=== PATIENT | female | born 1970 | race Caucasian/White ===

== ENCOUNTER 2016-07-04 14:27 | Observation (INO) | payer MEDICARE ==
[2016-07-04] MEDS ORDERED: BABY ASPIRIN 81 MG CHEW PO ONE (14:35)
[2016-07-04] MEDS ORDERED: Nitrostat 0.4 MG (ED) SL ONE ×3 (14:47→15:32)
[2016-07-04] MEDS ORDERED: BABY ASPIRIN 81 MG CHEW ONE (14:51)
--- NOTE | 2016-07-04 14:51 | ERPHSYRPT ---
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 states she became diaphoretic and nauseated. states she sees a cds sales advisor for mitral valve prolapse and strong family hx of heart disease Triage Nursing Assessment: pt pink, warm, dry. lung sounds clear and equal. radial pulses strong. Physician History: PATIENT WITH HISTORY OF RHEUMATOID ARTHRITIS, MITRAL VALVE PROLAPSE. COMPLAINS OF SUBSTERNAL CHEST PRESSURE PAIN SCALE 6/10, CONSTANT OVER THE PAST HOUR, ASSOCIATED WITH DIAPHORESIS AND OCCASIONAL DYSPNEA. DENIES RADIATION OF PAIN TO NECK, BACK, JAW OR ARMS. HAS STRONG FAMILY HISTORY MOTHER WITH MYOCARDIAL INFARCTION AGE 50. Timing/Duration: today Activities at Onset: none Quality: pressure Location: substernal Chest Pain Radiation: no radiation Severity of Pain-Max: moderate Severity of Pain-Current: moderate Modifying Factors: Improves With: nothing Associated Symptoms: shortness of breath, diaphoresis Prior Chest Pain/Cardiac Workup: no prior chest pain Nitro Today/Relief: no nitro taken today Aspirin Treatment Today: no aspirin today Allergies/Adverse Reactions: No Known Drug Allergies Allergy (Unverified 07/04/16 14:34) Home Medications: Cyclobenzaprine HCl [Flexeril] 10 mg PO TID 07/04/16 [History] Folic Acid 1 mg PO DAILY 07/04/16 [History] Methotrexate Sodium [Methotrexate] 2.5 mg PO UD 07/04/16 [History] Hx Tetanus, Diphtheria Vaccination/Date Given: Yes (unknown) Hx Influenza Vaccination/Date Given: Yes Hx Pneumococcal Vaccination/Date Given: No Immunizations Up to Date: Yes - Review of Systems Constitutional: No Fever, No Chills Eyes: No Symptoms Ears, Nose, & Throat: No Symptoms Respiratory: No Cough, No Dyspnea Cardiac: Chest Pain, No Edema, No Syncope Abdominal/Gastrointestinal: No Symptoms, No Abdominal Pain, No Nausea, No Vomiting, No Diarrhea Genitourinary Symptoms: No Symptoms, No Dysuria Musculoskeletal: No Symptoms, No Back Pain, No Neck Pain Skin: No Symptoms, No Rash Neurological: No Dizziness, No Focal Weakness, No Sensory Changes Psychological: No Symptoms Endocrine: No Symptoms All Other Systems: Reviewed and Negative - Past Medical History Pertinent Past Medical History: Yes Musculoskeletal History: Fibromyalgia, Rheumatoid Arthritis - Past Surgical History Past Surgical History: Yes Female Surgical History: Section - Social History Smoking Status: Never smoker Exposure to second hand smoke: No Drug Use: none Patient Lives Alone: No - Female History Hx Last Menstrual Period: end may 2016 - Nursing Vital Signs Pulse Rate: 68 Respiratory Rate: 18 Pain Intensity: 6 - Physical Exam General Appearance: no apparent distress, alert Eye Exam: PERRL/EOMI, eyes nml inspection Ears, Nose, Throat Exam: normal ENT inspection, moist mucous membranes Neck Exam: normal inspection, non-tender, supple, full range of motion Respiratory Exam: normal breath sounds, lungs clear, No respiratory distress Cardiovascular Exam: regular rate/rhythm, normal heart sounds, murmur (GRADE 2/ 4 ZENON,) Gastrointestinal/Abdomen Exam: soft, normal bowel sounds, No tenderness, No mass Back Exam: normal inspection, No CVA tenderness, No vertebral tenderness Extremity Exam: normal inspection, normal range of motion Neurologic Exam: alert, oriented x 3, cooperative, normal mood/affect, sensation nml, No motor deficits Skin Exam: normal color, warm, dry SpO2 Interpretation: normal SpO2: 100 Oxygen Delivery: Room Air - Course EKG Interpreted by Me: RATE, Sinus Rhythm (RATE OF 75), NORMAL AXIS - Radiology Exams Chest X-ray Interpretation: Interpreted by me, Negative Ordered Tests: Active Orders 24 hr Category Date Time Status Up With Assistance ROUTINE Activity 07/04/16 16:28 Ordered Admission/Status Order ROUTINE Care 07/04/16 16:27 Ordered Call Admit Doctor for Orders ROUTINE Care 07/04/16 16:27 Ordered Jowl Trimmer STAT Care 07/04/16 14:36 Active Jowl Trimmer STAT Care 07/04/16 14:47 Active Code Status Order ROUTINE Care 07/04/16 16:27 Ordered EKG-ER Only STAT Care 07/04/16 14:36 Active IV Care Q6H Care 07/04/16 16:27 Ordered IV Insertion STAT Care 07/04/16 14:36 Active Implement Chest Pain Pathway ROUTINE Care 07/04/16 16:27 Ordered Oxygen-ED Only NASAL CANNULA 2 lpm Care 07/04/16 14:47 Active Pulse Oximetry (ED) STAT Care 07/04/16 14:38 Active Jovan Macias, Apply ROUTINE Care 07/04/16 16:27 Ordered Telemetry ROUTINE Care 07/04/16 16:27 Ordered Vital Signs Q4H Care 07/04/16 16:27 Ordered Weight,Daily 0600 Care 07/04/16 16:27 Ordered Cardiac Diet Diet 07/04/16 Breakfast Ordered CHEST 1 VIEW (PORTABLE) Stat Exams 07/04/16 14:47 Taken CBC W DIFF Stat Lab 07/04/16 14:50 Completed CMP Routine Lab 07/04/16 14:50 Results D-DIMER QUANTITATION Stat Lab 07/04/16 14:50 Completed HCG,QUALITATIVE URINE Stat Lab 07/04/16 14:50 Completed LIPID PROFILE AM.LAB Lab 07/05/16 04:00 Ordered NT PRO BNP Routine Lab 07/04/16 14:50 Results PROTIME WITH INR Stat Lab 07/04/16 14:50 Completed TROPONIN Q3H Lab 07/04/16 14:50 Results TROPONIN Q3H Lab 07/04/16 18:00 Ordered TROPONIN Q3H Lab 07/04/16 21:00 Ordered TROPONIN Q3H Lab 07/05/16 00:00 Ordered TROPONIN Q3H Lab 07/05/16 03:00 Ordered UA W/ MICROSCOPIC Stat Lab 07/04/16 14:50 Completed EKG Q8HX2,QAMX3,PRN RT 07/04/16 16:27 Ordered Pulse Oximetry Q4H RT 07/04/16 16:27 Ordered Transfer Order Routine Transfer 07/04/16 16:26 Ordered Medication Summary Generic Name Dose Route Start Last Admin Trade Name Freq PRN Reason Stop Dose Admin Sodium Chloride 1,000 mls @ 50 mls/hr 07/04/16 15:00 07/04/16 14:52 Sodium Chloride 0.9% 1000 Ml IV 08/03/16 14:59 50 mls/hr .Q20H MICAH Administration Nitroglycerin 0.4 mg 07/04/16 15:10 07/04/16 15:34 Nitrostat 0.4 Mg Tablet SL 08/03/16 15:09 0.4 mg PRN PRN Administration CHEST PAIN Discontinued Medications Generic Name Dose Route Start Last Admin Trade Name Freq PRN Reason Stop Dose Admin Aspirin 324 mg 07/04/16 14:35 07/04/16 14:38 Baby Aspirin 81 Mg Chew PO 07/04/16 14:36 324 mg STAT ONE Administration Aspirin Confirm 07/04/16 14:51 Baby Aspirin 81 Mg Chew Administered 07/04/16 14:52 Dose 324 mg .ROUTE .STK-MED ONE Fentanyl Citrate 100 mcg 07/04/16 15:30 07/04/16 15:34 Sublimaze 100 Mcg/2 Ml IV 07/04/16 15:31 100 mcg STAT ONE Administration Fentanyl Citrate Confirm 07/04/16 15:33 Sublimaze 100 Mcg/2 Ml Administered 07/04/16 15:34 Dose 100 mcg .ROUTE .STK-MED ONE Sodium Chloride Confirm 07/04/16 14:52 Sodium Chloride 0.9% 1000 Ml Administered 07/04/16 14:53 Dose 1,000 mls @ ud .ROUTE .STK-MED ONE Nitroglycerin 0.4 mg 07/04/16 14:47 07/04/16 14:51 Nitrostat 0.4 Mg (Ed) SL 07/04/16 14:48 0.4 mg STAT ONE Administration Nitroglycerin Confirm 07/04/16 14:52 Nitrostat 0.4 Mg (Ed) Administered 07/04/16 14:53 Dose 0.4 mg SL .STK-MED ONE Nitroglycerin Confirm 07/04/16 15:32 Nitrostat 0.4 Mg (Ed) Administered 07/04/16 15:33 Dose 0.4 mg SL .STK-MED ONE Ondansetron HCl 4 mg 07/04/16 15:29 07/04/16 15:34 Zofran 4 Mg/2 Ml Vial IV 07/04/16 15:30 4 mg STAT ONE Administration Ondansetron HCl Confirm 07/04/16 15:32 Zofran 4 Mg/2 Ml Vial Administered 07/04/16 15:33 Dose 4 mg .ROUTE .STK-MED ONE Lab/Rad Data: Laboratory Result Diagrams 07/04/16 14:50 07/04/16 14:50 Laboratory Results 07/04/16 07/04/16 07/04/16 Range/Units 14:50 14:50 14:50 WBC (4.0-10.5) K/mm3 RBC (4.1-5.4) M/mm3 Hgb (12.0-16.0) gm/dl Hct (35-47) % MCV (78-100) fl MCH (26-32) pg MCHC (32-36) g/dl RDW (11.5-14.0) % Plt Count (150-450) K/mm3 MPV (6-9.5) fl Gran % (36.0-66.0) % Lymphocytes % (24.0-44.0) % Monocytes % (0.0-12.0) % Eosinophils % (0.00-5.0) % Basophils % (0.0-0.4) % Basophils # (0-0.4) INR (0.8-3.0) D-Dimer (0.00-0.49) mg/L Sodium Pending Potassium Pending Chloride Pending Carbon Dioxide 24.6 (21-32) mEq/L Anion Gap Pending BUN 18 (9-20) mg/dL Creatinine 0.98 (0.55-1.30) mg/dl Estimated GFR > 60 ML/MIN Glucose 77 (70-110) MG/DL Calcium 8.7 (8.5-10.1) mg/dL Total Bilirubin 0.3 (0.2-1.0) mg/dL AST 11 L (15-37) U/L ALT < 6 L (12-78) U/L Alkaline Phosphatase 60 (46-116) U/L Troponin I < 0.017 (0.000-0.056) ng/ml NT-Pro-B Natriuret Pep 13 (0-125) pg/ml Serum Total Protein 7.1 (6.4-8.2) gm/dL Albumin 3.7 (3.4-5.0) g/dL Ur Collection Type CCMS Urine Color YELLOW (YELLOW) Urine Appearance CLEAR (CLEAR) Urine pH 7.0 (5-6) Ur Specific Newell 1.020 (1.005-1.025) Urine Protein NEGATIVE (Negative) Urine Glucose (UA) NEGATIVE (NEGATIVE) mg/dL Urine Ketones NEGATIVE (NEGATIVE) Urine Nitrite NEGATIVE (NEGATIVE) Urine Bilirubin NEGATIVE (NEGATIVE) Urine Urobilinogen 0.2 (0-1) mg/dL Urine WBC (Auto) NEGATIVE (NEGATIVE) Urine RBC (Auto) TRACE-INTACT (0-5) Blade/ul Urine Microscopic RBC 2-5 (0-2) /HPF Urine Microscopic WBC 0-2 (0-5) /HPF Ur Epithelial Cells FEW (FEW) /HPF Urine Bacteria FEW (NEGATIVE) /HPF Urine HCG, Qual NEGATIVE (Negative) Specimen Received 1450 07/04/16 07/04/16 07/04/16 Range/Units 14:50 14:50 WBC 6.8 (4.0-10.5) K/mm3 RBC 4.46 (4.1-5.4) M/mm3 Hgb 11.9 L (12.0-16.0) gm/dl Hct 36.9 (35-47) % MCV 82.7 (78-100) fl MCH 26.6 (26-32) pg MCHC 32.2 (32-36) g/dl RDW 13.9 (11.5-14.0) % Plt Count 336 (150-450) K/mm3 MPV 10.5 H (6-9.5) fl Gran % 48.4 (36.0-66.0) % Lymphocytes % 36.7 (24.0-44.0) % Monocytes % 13.0 H (0.0-12.0) % Eosinophils % 1.5 (0.00-5.0) % Basophils % 0.4 (0.0-0.4) % Basophils # 0.03 (0-0.4) INR 0.97 (0.8-3.0) D-Dimer 0.373 (0.00-0.49) mg/L Sodium Potassium Chloride Carbon Dioxide (21-32) mEq/L Anion Gap BUN (9-20) mg/dL Creatinine (0.55-1.30) mg/dl Estimated GFR ML/MIN Glucose (70-110) MG/DL Calcium (8.5-10.1) mg/dL Total Bilirubin (0.2-1.0) mg/dL AST (15-37) U/L ALT (12-78) U/L Alkaline Phosphatase (46-116) U/L Troponin I (0.000-0.056) ng/ml NT-Pro-B Natriuret Pep (0-125) pg/ml Serum Total Protein (6.4-8.2) gm/dL Albumin (3.4-5.0) g/dL Ur Collection Type Urine Color (YELLOW) Urine Appearance (CLEAR) Urine pH (5-6) Ur Specific Newell (1.005-1.025) Urine Protein (Negative) Urine Glucose (UA) (NEGATIVE) mg/dL Urine Ketones (NEGATIVE) Urine Nitrite (NEGATIVE) Urine Bilirubin (NEGATIVE) Urine Urobilinogen (0-1) mg/dL Urine WBC (Auto) (NEGATIVE) Urine RBC (Auto) (0-5) Blade/ul Urine Microscopic RBC (0-2) /HPF Urine Microscopic WBC (0-5) /HPF Ur Epithelial Cells (FEW) /HPF Urine Bacteria (NEGATIVE) /HPF Urine HCG, Qual (Negative) Specimen Received - Progress Progress: improved Progress Note: 07/04/16 15:00 PATIENT GIVEN IV NORMAL SALINE AT 50ML/HR, 4 BABY ASPIRIN, NITROGLYCERIN O.4MG SL X 2 DOSES, NITROPASTE 1" ANTERIOR CHEST WALL, ZOFRAN 4MG, FENTANYL 100MCG IV 07/04/16 16:21 Discussed with : Joe Will see patient in: hospital (observation) (DISCUSSED WITH DR BAZZI AT 1620 FOR ADMISSION) - Departure Time of Disposition: 16:35 Departure Disposition: Observation Clinical Impression: ACUTE CHEST PAIN Condition: Stable Critical Care Time: No Referrals: Tamra Bowman NP [Primary Care Provider] -
[2016-07-04] MEDS: Sodium Chloride 0.9% 1000 ML 1,000 ML IV SCH (14:52)
[2016-07-04] MEDS ORDERED: Sodium Chloride 0.9% 1000 ML 1,000 ML ONE (14:52)
[2016-07-04 14:55] LABS: BASOPHIL % 0.4 % (0.0-0.4); Eosinophil % 1.5 % (0.00-5.0); Granulocytes % 48.4 % (36.0-66.0); Lymphocytes % 36.7 % (24.0-44.0); Mean Cell Volume 82.7 fl (78-100); Mean Platelet Volume 10.5 fl (6-9.5); Platelet Count 336 K/mm3 (150-450); Red Blood Count 4.46 M/mm3 (4.1-5.4); Red Cell Distribution Width 13.9 % (11.5-14.0); White Blood Count 6.8 K/mm3 (4.0-10.5)
[2016-07-04 14:59] LABS: Mean Corpuscular Hemoglobin 26.6 pg (26-32)
[2016-07-04 15:06] LABS: COMPLETE URINE MICROSCOPIC? YES; Collection Type CCMS
[2016-07-04 15:09] LABS: INR 0.97 (0.8-3.0); PROTIME 10.9 SECONDS (9.95-12.35)
[2016-07-04] MEDS ORDERED: Nitrostat 0.4 MG Tablet SL PRN (15:10)
[2016-07-04] MEDS ORDERED: Zofran 4 MG/2 ML VIAL IV ONE (15:29)
[2016-07-04 15:30] LABS: Bacteria FEW /HPF (NEGATIVE); Epithelial Cells FEW /HPF (FEW); WBC 0-2 /HPF (0-5)
[2016-07-04] MEDS ORDERED: SUBLIMAZE 100 MCG/2 ML IV ONE (15:30)
[2016-07-04] MEDS ORDERED: Zofran 4 MG/2 ML VIAL ONE (15:32)
[2016-07-04] MEDS ORDERED: SUBLIMAZE 100 MCG/2 ML ONE (15:33)
[2016-07-04 15:49] LABS: ALBUMIN 3.7 g/dL (3.4-5.0); ALKALINE PHOSPHATASE 60 U/L (46-116); BILIRUBIN,TOTAL 0.3 mg/dL (0.2-1.0); BLOOD UREA NITROGEN 18 mg/dL (9-20); Carbon Dioxide 24.6 mEq/L (21-32); Glucose 77 MG/DL (70-110); SGOT/AST 11 U/L (15-37); TROPONIN < 0.017 ng/ml (0.000-0.056); Total Protein 7.1 gm/dL (6.4-8.2)
[2016-07-04 15:50] LABS: SGPT/ALT < 6 U/L (12-78)
[2016-07-04] MEDS ORDERED: MILK OF MAGNESIA 30 ML PO PRN (16:27)
[2016-07-04] MEDS ORDERED: MORPHINE SULFATE 2 MG INJ IV PRN (16:27)
[2016-07-04] MEDS ORDERED: Zofran 4 MG/2 ML VIAL IV PRN (16:27)
[2016-07-04] MEDS ORDERED: TYLENOL 325 MG PO PRN (16:27)
[2016-07-04] MEDS ORDERED: MAALOX ES 30 ML UNIT DOSE PO PRN (16:27)
[2016-07-04] MEDS ORDERED: Senokot-S Tablet PO PRN (16:27)
[2016-07-04] MEDS ORDERED: Sodium Chloride 0.9% 500 ML 500 ML IV SCH (16:30)
[2016-07-04 18:44] LABS: CHLORIDE 102 mEq/L (98-107); Potassium 3.9 mEq/L (3.5-5.1); SODIUM 139 mEq/L (136-145)
[2016-07-04 18:45] LABS: ANION GAP 16.4 MEQ/L (5-15)
--- NOTE | 2016-07-04 20:51 | XRAY ---
Indication: Dyspnea. Comparison: April 23, 2016. Portable chest again demonstrates normal heart and lungs. Bony thorax intact.
[2016-07-04] MEDS ORDERED: Protonix 40MG Tablet PO SCH ×2 (22:00→22:40)
[2016-07-04] MEDS ORDERED: TREXALL 2.5 MG PO SCH (22:00)
[2016-07-04] MEDS: NITRO-BID 2% UD PACKETS TOP SCH (22:49)
[2016-07-04] MEDS: FOLATE 1 MG PO SCH (22:50)
[2016-07-04] MEDS: Cyclobenzaprine 10 MG PO SCH (22:50)
[2016-07-05] MEDS: Sodium Chloride 0.9% 1000 ML 1,000 ML IV SCH (00:41)
[2016-07-05] MEDS: NITRO-BID 2% UD PACKETS TOP SCH (06:18)
[2016-07-05 07:44] VITALS: BP 98/53; PULSE 79; O2SAT 94
--- NOTE | 2016-07-05 07:59 | PCM.SSS ---
History of Present Illness - Chief Complaint Chief Complaint: chest pain History of Present Illness: is a 46 year old female pt of Felecia Bowman NP with hx RA who started having chest pain yesterday. She was sitting down and had pressure from the inferior portion of her ribs to the mid chest, 6/10, radiating around to the back. Some neck tightness. Diaphoresis. No palpitations, no SOB. Some nausea. Sx resolved with meds in the ER. Troponins have been negative. Pt denies any chest pain or discomfort this morning. She had a strong FHx heart disease, with her mother, Marizol, and cousin having MIs in 40s-50s and in the 50s-60s. She has seen Dr. Mera for the past 15 years or so; last seen 2 weeks ago. S he did not have a stress test this year. Non smoker. - Review of Systems Ears, Nose, & Throat: Other (ear pressure with the chest pain) Cardiac: Chest Pain, Other (as in HPI) Psychological: Anxiety, No Suicidal Ideations All Other Systems: Reviewed and Negative Medications & Allergies Home Medications: Home Medication List Cyclobenzaprine HCl [Flexeril] 10 mg PO TID 07/04/16 [History Confirmed 07/04/16 ] Folic Acid 1 mg PO DAILY 07/04/16 [History Confirmed 07/04/16] Methotrexate Sodium [Methotrexate] 2.5 mg PO UD 07/04/16 [History Confirmed 04/10] Omeprazole 20 MG [Prilosec 20 mg] 20 mg PO HS 07/04/16 [History Confirmed ] Tocilizumab 400 mg/20 ml [Actemra] 400 mg IV UD 07/04/16 [History Confirmed 07/04/16] Nitroglycerin 0.4 mg Tablet [Nitrostat 0.4 MG Tablet] 0.4 mg SL PRN PRN # 1 bottle 07/05/16 [Rx] Allergies/Adverse Reactions: Allergies Allergy/AdvReac Type Severity Reaction Status Date / Time No Known Drug Allergies Allergy Unverified 07/04/16 14:34 - Past Medical History Past Medical History: Yes Neurological History: No Pertinent History ENT History: No Pertinent History Cardiac History: Other Respiratory History: No Pertinent History Endocrine Medical History: No Pertinent History, Other Musculoskelatal History: Fibromyalgia, Rheumatoid Arthritis GI Medical History: GERD, Irritable Bowel History: No Pertinent History Pyscho-Social History: No Pertinent History Reproductive Disorders: No Pertinent History Comment: Mitral valve prolapse; anemia - Female History Hx Last Menstrual Period: end may 2016 Are you now?: No - Past Surgical History Past Surgical History: Yes Neuro Surgical History: No Pertinent History Cardiac History: No Pertinent History Respiratory Surgery: No Pertinent History GI Surgical History: No Pertinent History Genitourinary Surgical Hx: No Pertinent History Musculskeletal Surgical Hx: No Pertinent History Female Surgical History: Section - Social History Smoking Status: Never smoker Exposure to second hand smoke: No Alcohol: None Drug Use: none - Physical Exam Vital Signs: Vital Signs - 24 hr Temp Pulse Pulse Resp BP BP Pulse Ox 07/05/16 07:00 98.5 F 79 17 98/53 94 L 07/05/16 04:43 98.2 F 81 14 100/59 97 07/05/16 02:50 63 14 107/68 97 07/04/16 23:00 98.2 F 63 14 107/68 97 07/04/16 19:57 98.1 F 79 16 122/70 99 07/04/16 17:11 97.5 F 60 18 120/64 98 07/04/16 16:32 68 18 100 07/04/16 16:25 74 18 106/57 100 07/04/16 15:43 87 18 133/65 07/04/16 15:34 111/80 07/04/16 15:00 72 111/80 07/04/16 14:55 67 131/78 07/04/16 14:38 100 07/04/16 14:33 68 18 131/91 07/04/16 14:28 68 Oxygen-Last 24 hours O2 Percentage 2 Liters = 28% O2 Percentage 2 Liters = 28% General Appearance: no apparent distress Neurologic Exam: alert, oriented x 3, cooperative Eye Exam: eyes nml inspection Neck Exam: normal inspection, non-tender, No lymphadenopathy Respiratory Exam: normal breath sounds, lungs clear, No crackles/rales, No rhonchi, No wheezing Cardiovascular Exam: regular rate/rhythm, normal heart sounds, No murmur Gastrointestinal/Abdomen Exam: soft, normal bowel sounds, No tenderness, No guarding, No rebound Back Exam: normal inspection, No CVA tenderness Extremity Exam: No pedal edema, No swelling Skin Exam: normal color, warm, dry, No rash Results - Labs Lab/Micro Results: Lab Results-Last 24 Hours 07/04/16 07/04/16 07/05/16 Range/Units 18:31 21:30 00:29 Troponin I < 0.017 < 0.017 < 0.017 (0.000-0.056) ng/ml Triglycerides (30-200) mg/dL Cholesterol (100-200) mg/dL LDL Cholesterol (5-99) mg/dL HDL Cholesterol (35-60) mg/dL Heart Disease Risk Ratio 07/05/16 07/05/16 Range/Units 03:16 03:16 Troponin I < 0.017 (0.000-0.056) ng/ml Triglycerides 57 (30-200) mg/dL Cholesterol 141 (100-200) mg/dL LDL Cholesterol 70 (5-99) mg/dL HDL Cholesterol 64 H (35-60) mg/dL Heart Disease Risk Ratio 2.2 - Other Procedures and Tests Respiratory Therapy 07/05/16 05:00 EKG Q8HX2,QAMX3,PRN 07/06/16 05:00 EKG ONCE 07/07/16 05:00 EKG ONCE Assessment/Plan (1) Chest pain Current Visit: Yes Status: Acute Qualifiers: Chest pain type: unspecified Qualified Code(s): R07.9 - Chest pain, unspecified Assessment & Plan: CA ruled out. Will forward the summary of this stay to Dr. Mera and I have discussed with the patient that he may want to order a stress test. I will discuss with Dr. Mera. Code(s): R07.9 - CHEST PAIN, UNSPECIFIED (2) Rheumatoid arthritis Current Visit: Yes Status: Chronic Qualifiers: Rheumatoid arthritis location: unspecified site Rheumatoid factor presence : unspecified presence Qualified Code(s): M06.9 - Rheumatoid arthritis, unspecified Code(s): M06.9 - RHEUMATOID ARTHRITIS, UNSPECIFIED Hospital Summary - Hospital Course Hospital Course: Pt admitted with chest pain and CA ruled out with negative troponins x 5. EKG with no ST changes, NSR, normal axis. She does have a strong family history of CAD and already sees Dr. Joshua Mera so will have her follow up with him outpatient. - Vitals & Intake/Output Vital Signs: Vital Signs Temperature 98.5 F 07/05/16 07:00 Pulse Rate 79 07/05/16 07:00 Respiratory Rate 17 07/05/16 07:00 Blood Pressure 98/53 07/05/16 07:00 O2 Sat by Pulse Oximetry 94 L 07/05/16 07:00 Oxygen-Last Documented O2 Percentage 2 Liters = 28% Intake & Output: Intake & Output 07/02/16 07/03/16 07/04/16 07/05/16 10:59 10:59 11:59 11:59 Intake Total 1327 Balance 1327 Weight 72.529 kg - Lab Result Diagrams: 07/04/16 14:50 07/04/16 14:50 Lab Results-Last 24 Hrs: Lab Results-Last 24 Hours 07/04/16 07/04/16 07/05/16 Range/Units 18:31 21:30 00:29 Troponin I < 0.017 < 0.017 < 0.017 (0.000-0.056) ng/ml Triglycerides (30-200) mg/dL Cholesterol (100-200) mg/dL LDL Cholesterol (5-99) mg/dL HDL Cholesterol (35-60) mg/dL Heart Disease Risk Ratio 07/05/16 07/05/16 Range/Units 03:16 03:16 Troponin I < 0.017 (0.000-0.056) ng/ml Triglycerides 57 (30-200) mg/dL Cholesterol 141 (100-200) mg/dL LDL Cholesterol 70 (5-99) mg/dL HDL Cholesterol 64 H (35-60) mg/dL Heart Disease Risk Ratio 2.2 - Procedures and Test Procedures and Tests throughout Hospitalization: Therapy Orders & Screens 07/04/16 22:30 EKG ONCE Comment: 07/05/16 05:00 EKG ONCE Comment: EKG Q8HX2,QAMX3,PRN Comment: 07/06/16 05:00 EKG ONCE Comment: 07/07/16 05:00 EKG ONCE Comment: - Discharge Disposition: Home, Self-Care Condition: Good Prescriptions: New Nitroglycerin 0.4 mg Tablet [Nitrostat 0.4 MG Tablet] 0.4 mg SL PRN PRN #1 bottle PRN Reason: Chest Pain Continue Methotrexate Sodium [Methotrexate] 2.5 mg PO UD Folic Acid 1 mg PO DAILY Cyclobenzaprine HCl [Flexeril] 10 mg PO TID Omeprazole 20 MG [Prilosec 20 mg] 20 mg PO HS Tocilizumab 400 mg/20 ml [Actemra] 400 mg IV UD Follow up with: Tamra Bowman NP [Primary Care Provider] -
[2016-07-05] MEDS: Cyclobenzaprine 10 MG PO SCH (08:58)
[2016-07-05] MEDS: FOLATE 1 MG PO SCH (08:59)
[2016-07-05] MEDS ORDERED: Ecotrin 325 MG PO SCH (10:00)
[2016-07-11] MEDS ORDERED: TREXALL 2.5 MG PO SCH (10:00)
== END 2016-07-05 09:35 | disposition home or self-care (01) ==
LOC: ED 14:27 → MED SURG 17:02
PROVIDERS: ADMIT Family Medicine; ATTEND Family Medicine
DX: R07.9 Chest pain, unspecified (principal); M06.9 Rheumatoid arthritis, unspecified; Z79.899 Other long term (current) drug therapy
CPT/HCPCS: 93268; 93041; 96374; 99285; 36000; 96360; 96361; 93005 ×3; 84703; 81000; 85610; 36415 ×2; 83721; 83880; 85379; 85025; 80053; 80061; 84484 ×2; 71010; A9270 ×8; G0378; J2405; J3010

== ENCOUNTER 2017-07-05 16:02 | Inpatient (IN) | payer MEDICARE ==
[2017-07-05] MEDS ORDERED: Sodium Chloride 0.9% 1000 ML 1,000 ML IV SCH (16:45)
[2017-07-05 16:58] LABS: Hematocrit 38.7 % (35-47); Hemoglobin 12.1 gm/dl (12.0-16.0); Mean Cell Volume 75.4 fl (78-100); Mean Corpuscular Hemoglobin 23.6 pg (26-32); Mean Corpuscular Hgb Concent. 31.3 g/dl (32-36); Mean Platelet Volume 10.6 fl (6-9.5); Platelet Count 285 K/mm3 (150-450); Red Blood Count 5.13 M/mm3 (4.1-5.4); White Blood Count 7.6 K/mm3 (4.0-10.5)
[2017-07-05] MEDS ORDERED: Nitrostat 0.4 MG Tablet SL PRN (17:13)
--- NOTE | 2017-07-05 17:17 | XRAY ---
Indication: Abdominal pain. C. difficile. Comparison: None 2 views of the abdomen nonobstructed. Minimal small and large bowel synchronous fluid leveling, ileus versus enterocolitis. No focal bowel dilatation, bowel wall thickening, or free air. Solid organs unremarkable. Multiple pelvic phleboliths. Osseous structures intact with partially sacralized L5. Lung bases are clear. Impression: Minimal small/large bowel synchronous fluid leveling, ileus versus enterocolitis.
[2017-07-05 17:20] LABS: ALBUMIN 3.1 g/dL (3.5-5.0); ALKALINE PHOSPHATASE 208 U/L (38-126); ANION GAP 21.7 MEQ/L (5-15); BLOOD UREA NITROGEN 9 mg/dL (7-17); CHLORIDE 103 mmol/L (98-107); Calcium 8.1 mg/dL (8.4-10.2); Creatinine 1 0.62 mg/dL (0.52-1.04); Glucose 77 mg/dL (74-106); Potassium 4.6 mmol/L (3.5-5.1); SGOT/AST 130 U/L (14-36); SGPT/ALT 48 U/L (0-35); SODIUM 136 mmol/L (137-145); Total Protein 5.6 g/dL (6.3-8.2)
[2017-07-05] MEDS: FLAGYL 500 MG IVPB 500 MG/100 ML BAG IV SCH ×2 (17:33→21:33)
[2017-07-05 17:36] LABS: Carbon Dioxide 16 mmol/L (22-30)
[2017-07-05 18:52] LABS: ATYPICAL LYMPHS 6 %; BAND 5 % (0.0-2.0); Lymphocytes 20 % (24-44); Monocyte 3 % (0.0-12.0); Neutrophils 66 % (36.0-66.0); Poikilocytosis 2+; Total Cells Counted 100
[2017-07-05 18:53] LABS: ACANTHROCYTES 1+; Ovalocytes 1+
[2017-07-05 18:54] LABS: Hypochromia 1+; Microcytosis 1+
[2017-07-05] MEDS ORDERED: Zofran 4 MG/2 ML VIAL IV PRN (19:31)
[2017-07-05] MEDS: TYLENOL 325 MG PO PRN (19:40)
[2017-07-05] MEDS: Lactated Ringers 1,000 ML IV SCH (19:40)
--- NOTE | 2017-07-05 19:42 | PCM.HP ---
History of Present Illness - Chief Complaint Chief Complaint: dehydration, cdiff History of Present Illness: is a 47 year old female seen by Kendra العراقي NP today and admitted to Med Surg directly with dehydration and C. diff colitis. She was treated for an abscess on her chin with antibiotics. About 2 weeks after that she started having diarrhea. For the first 10 days or so the diarrhea was mild to moderate and her po intake was good. Overall she felt fine. After that time she started having diarrhea 2-3 times an hour and all night long. She was tested at , found to have c. diff and was given po flagyl. Has been having some chills. Decreased appetite and po intake. Today felt terrible and urine quite bright yellow. - Review of Systems Constitutional: Chills, Weakness, Weight Loss (10 lb) Respiratory: Cough Abdominal/Gastrointestinal: Abdominal Pain, Nausea, Diarrhea Neurological: Dizziness Psychological: No Anxiety, No Depression, No Suicidal Ideations, No Homicidal Ideations All Other Systems: Reviewed and Negative Medications & Allergies Home Medications: Home Medication List Cyclobenzaprine HCl [Flexeril] 10 mg PO BID 07/04/16 [History Confirmed 07/05/17 ] Folic Acid 1 mg PO DAILY 07/04/16 [History Confirmed 07/05/17] Methotrexate Sodium [Methotrexate] 2.5 mg PO UD 07/04/16 [History Confirmed ] Omeprazole 20 MG [Prilosec 20 mg] 20 mg PO HS 07/04/16 [History Confirmed ] Tocilizumab 400 mg/20 ml [Actemra] 400 mg IV UD 07/04/16 [History Confirmed 07/05/17] Nitroglycerin 0.4 mg Tablet [Nitrostat 0.4 MG Tablet] 0.4 mg SL PRN PRN # 1 bottle 07/05/16 [Rx Confirmed 07/05/17] Allergies/Adverse Reactions: Allergies Allergy/AdvReac Type Severity Reaction Status Date / Time No Known Drug Allergies Allergy Unverified 07/04/16 14:34 - Past Medical History Past Medical History: Yes Neurological History: No Pertinent History ENT History: No Pertinent History Cardiac History: Other Respiratory History: No Pertinent History Endocrine Medical History: No Pertinent History, Other Musculoskelatal History: Fibromyalgia, Rheumatoid Arthritis GI Medical History: GERD, Irritable Bowel History: No Pertinent History Pyscho-Social History: No Pertinent History Reproductive Disorders: No Pertinent History Comment: Mitral valve prolapse; anemia - Female History Are you now?: No - Past Surgical History Past Surgical History: Yes Neuro Surgical History: No Pertinent History Cardiac History: No Pertinent History Respiratory Surgery: No Pertinent History GI Surgical History: No Pertinent History Genitourinary Surgical Hx: No Pertinent History Musculskeletal Surgical Hx: No Pertinent History Female Surgical History: Section - Social History Smoking Status: Never smoker Exposure to second hand smoke: No Alcohol: None Drug Use: none - Physical Exam Vital Signs: Vital Signs - 24 hr Temp Pulse Resp BP Pulse Ox 07/05/17 16:29 97.7 F 94 H 16 107/ 99 07/05/17 16:25 97.7 F 94 H 107/66 07/05/17 16:07 97.7 F 94 H 16 99 General Appearance: no apparent distress, alert Neurologic Exam: oriented x 3, cooperative Eye Exam: eyes nml inspection Ears, Nose, Throat Exam: moist mucous membranes Neck Exam: normal inspection, non-tender, No mass, No lymphadenopathy Respiratory Exam: normal breath sounds, lungs clear, No respiratory distress, No crackles/rales, No rhonchi, No wheezing Cardiovascular Exam: regular rate/rhythm, normal heart sounds, No murmur Gastrointestinal/Abdomen Exam: soft, tenderness (epigastrum), No distention, No mass, No guarding, No rebound Back Exam: normal inspection, No rash Results - Labs Lab/Micro Results: Lab Results-Last 24 Hours 07/05/17 07/05/17 07/05/17 Range/Units 16:40 16:40 17:47 WBC 7.6 (4.0-10.5) K/mm3 RBC 5.13 (4.1-5.4) M/mm3 Hgb 12.1 (12.0-16.0) gm/dl Hct 38.7 (35-47) % MCV 75.4 L (78-100) fl MCH 23.6 L (26-32) pg MCHC 31.3 L (32-36) g/dl RDW 18.0 H (11.5-14.0) % Plt Count 285 (150-450) K/mm3 MPV 10.6 H (6-9.5) fl Segmented Neutrophils 66 (36.0-66.0) % Band Neutrophils 5 H (0.0-2.0) % Lymphocytes (Manual) 20 L (24-44) % Monocytes (Manual) 3 (0.0-12.0) % Atypical Lymphocytes 6 % Hypochromasia 1+ Poikilocytosis 2+ Microcytosis 1+ Ovalocytes 1+ Acanthocytes (Spur) 1+ Sodium 136 L (137-145) mmol/L Potassium 4.6 (3.5-5.1) mmol/L Chloride 103 (98-107) mmol/L Carbon Dioxide 16 L (22-30) mmol/L Anion Gap 21.7 H (5-15) MEQ/L BUN 9 (7-17) mg/dL Creatinine 0.62 (0.52-1.04) mg/dL Estimated GFR > 60 ML/MIN Glucose 77 (74-106) mg/dL Lactic Acid 1.2 (0.4-2.0) Calcium 8.1 L (8.4-10.2) mg/dL Magnesium 2.1 (1.6-2.3) mg/dL Total Bilirubin 0.50 (0.2-1.3) mg/dL AST 130 H (14-36) U/L ALT 48 H (0-35) U/L Alkaline Phosphatase 208 H (38-126) U/L Serum Total Protein 5.6 L (6.3-8.2) g/dL Albumin 3.1 L (3.5-5.0) g/dL - Radiology Impressions Radiology Exams & Impressions: Radiology Procedures Category Date Time Status ABDOMEN 2 VIEW Stat Exams 07/05/17 17:04 Completed Assessment/Plan (1) Clostridium difficile colitis Current Visit: Yes Status: Acute Assessment & Plan: Started IV flagyl and po vancomycin, since pt dehydrated and this has been going on for well over a week. (2) Dehydration Current Visit: Yes Status: Acute Code(s): E86.0 - DEHYDRATION (3) Rheumatoid arthritis Current Visit: No Status: Chronic Qualifiers: Rheumatoid arthritis location: unspecified site Rheumatoid factor presence : unspecified presence Qualified Code(s): M06.9 - Rheumatoid arthritis, unspecified Assessment & Plan: I've held her methotrexate and biologic for now Code(s): M06.9 - RHEUMATOID ARTHRITIS, UNSPECIFIED (4) Failure of outpatient treatment Current Visit: Yes Status: Acute Code(s): Z78.9 - OTHER SPECIFIED HEALTH STATUS
[2017-07-05] MEDS: NON-FORMULARY ITEM PO SCH (19:43)
[2017-07-05] MEDS: Protonix 40MG Tablet PO SCH (21:33)
[2017-07-05] MEDS: Cyclobenzaprine 10 MG PO SCH (21:33)
[2017-07-05] MEDS ORDERED: NON-FORMULARY ITEM (Cyclobenzaprine Hcl [Flexeril] 10 MG) PO SCH (22:00)
[2017-07-05] MEDS ORDERED: NON-FORMULARY ITEM (Omeprazole 20 Mg [Prilosec 20 Mg] 20 MG) PO SCH (22:00)
[2017-07-06] MEDS: NON-FORMULARY ITEM PO SCH ×5 (00:19→23:59)
[2017-07-06] MEDS: TYLENOL 325 MG PO PRN ×3 (00:26→17:28)
[2017-07-06] MEDS: Lactated Ringers 1,000 ML IV SCH ×2 (04:30→14:50)
[2017-07-06 05:41] LABS: Hemoglobin 9.2 gm/dl (12.0-16.0); Mean Cell Volume 74.7 fl (78-100); Mean Corpuscular Hemoglobin 23.7 pg (26-32); Mean Corpuscular Hgb Concent. 31.7 g/dl (32-36); Mean Platelet Volume 9.2 fl (6-9.5); Platelet Count 281 K/mm3 (150-450); Red Blood Count 3.88 M/mm3 (4.1-5.4); White Blood Count 6.5 K/mm3 (4.0-10.5)
[2017-07-06 06:09] LABS: ALBUMIN 2.4 g/dL (3.5-5.0); ALKALINE PHOSPHATASE 149 U/L (38-126); ANION GAP 12.7 MEQ/L (5-15); BLOOD UREA NITROGEN 6 mg/dL (7-17); CHLORIDE 104 mmol/L (98-107); Calcium 7.4 mg/dL (8.4-10.2); Carbon Dioxide 21 mmol/L (22-30); Creatinine 1 0.66 mg/dL (0.52-1.04); Glucose 99 mg/dL (74-106); Potassium 3.8 mmol/L (3.5-5.1); SGOT/AST 63 U/L (14-36); SGPT/ALT 31 U/L (0-35); SODIUM 134 mmol/L (137-145); Total Protein 4.6 g/dL (6.3-8.2)
--- NOTE | 2017-07-06 08:21 | PCM.NOTE ---
Date and Time: 07/06/17816 Subjective Assessment: Fever to 102.7 overnight - blood cultures taken. Cough has worsened since admission. Diarrhea is small amounts, still having tenesmus. Last night felt that throat was dry, painful - better since drinking this morning. - Review of Systems Constitutional: Fever, Chills Respiratory: Cough Abdominal/Gastrointestinal: Diarrhea Objective Exam General Appearance: no apparent distress, alert Neurologic Exam: oriented x 3, cooperative Skin Exam: normal color, warm, dry, No rash Ears, Nose, Throat Exam: pharynx normal, moist mucous membranes, No pharyngeal erythema, No tonsillar exudate Neck Exam: normal inspection, non-tender, lymphadenopathy (bilat ant cervical, nttp, approx 1 cm) Respiratory Exam: normal breath sounds, lungs clear, No crackles/rales, No rhonchi, No wheezing Cardiovascular Exam: regular rate/rhythm, normal heart sounds, No murmur Gastrointestinal/Abdomen Exam: soft, normal bowel sounds, No tenderness, No distention, No mass, No guarding, No rebound Extremity Exam: normal inspection, No pedal edema, No swelling OBJECTIVE DATA Vital Signs: Vital Signs - 24 hr Temp Pulse Resp BP Pulse Ox 07/06/17 06:59 98.9 F 102 H 16 103/61 94 L 07/06/17 04:00 99.1 F 93 H 18 97/56 98 07/06/17 00:00 100.1 F 112 H 18 100/63 95 07/05/17 20:07 102.7 F 110 H 18 113/70 95 07/05/17 16:29 97.7 F 94 H 16 107/66 99 07/05/17 16:25 97.7 F 94 H 107/66 07/05/17 16:07 97.7 F 94 H 16 107/66 99 Pain Assessment - Last Documented Pain Intensity 0 Pain Scale Used [facility] Intake and Output: Intake & Output 07/03/17 07/04/17 07/05/17 07/06/17 11:59 11:59 11:59 11:59 Intake Total 2935 Output Total 1100 Balance 1835 Weight 60.6 kg Lab Results: Lab Results-Last 24 Hours 07/05/17 07/05/17 07/05/17 Range/Units 16:40 16:40 17:47 WBC 7.6 (4.0-10.5) K/mm3 RBC 5.13 (4.1-5.4) M/mm3 Hgb 12.1 (12.0-16.0) gm/dl Hct 38.7 (35-47) % MCV 75.4 L (78-100) fl MCH 23.6 L (26-32) pg MCHC 31.3 L (32-36) g/dl RDW 18.0 H (11.5-14.0) % Plt Count 285 (150-450) K/mm3 MPV 10.6 H (6-9.5) fl Segmented Neutrophils 66 (36.0-66.0) % Band Neutrophils 5 H (0.0-2.0) % Lymphocytes (Manual) 20 L (24-44) % Monocytes (Manual) 3 (0.0-12.0) % Atypical Lymphocytes 6 % Hypochromasia 1+ Poikilocytosis 2+ Microcytosis 1+ Ovalocytes 1+ Acanthocytes (Spur) 1+ Sodium 136 L (137-145) mmol/L Potassium 4.6 (3.5-5.1) mmol/L Chloride 103 (98-107) mmol/L Carbon Dioxide 16 L (22-30) mmol/L Anion Gap 21.7 H (5-15) MEQ/L BUN 9 (7-17) mg/dL Creatinine 0.62 (0.52-1.04) mg/dL Estimated GFR > 60 ML/MIN Glucose 77 (74-106) mg/dL Lactic Acid 1.2 (0.4-2.0) Calcium 8.1 L (8.4-10.2) mg/dL Magnesium 2.1 (1.6-2.3) mg/dL Total Bilirubin 0.50 (0.2-1.3) mg/dL AST 130 H (14-36) U/L ALT 48 H (0-35) U/L Alkaline Phosphatase 208 H (38-126) U/L Serum Total Protein 5.6 L (6.3-8.2) g/dL Albumin 3.1 L (3.5-5.0) g/dL 07/06/17 07/06/17 Range/Units 05:39 05:39 WBC 6.5 (4.0-10.5) K/mm3 RBC 3.88 L (4.1-5.4) M/mm3 Hgb 9.2 L (12.0-16.0) gm/dl Hct 29.0 L (35-47) % MCV 74.7 L (78-100) fl MCH 23.7 L (26-32) pg MCHC 31.7 L (32-36) g/dl RDW 17.0 H (11.5-14.0) % Plt Count 281 (150-450) K/mm3 MPV 9.2 (6-9.5) fl Segmented Neutrophils (36.0-66.0) % Band Neutrophils (0.0-2.0) % Lymphocytes (Manual) (24-44) % Monocytes (Manual) (0.0-12.0) % Atypical Lymphocytes % Hypochromasia Poikilocytosis Microcytosis Ovalocytes Acanthocytes (Spur) Sodium 134 L (137-145) mmol/L Potassium 3.8 (3.5-5.1) mmol/L Chloride 104 (98-107) mmol/L Carbon Dioxide 21 L (22-30) mmol/L Anion Gap 12.7 (5-15) MEQ/L BUN 6 L (7-17) mg/dL Creatinine 0.66 (0.52-1.04) mg/dL Estimated GFR > 60 ML/MIN Glucose 99 (74-106) mg/dL Lactic Acid (0.4-2.0) Calcium 7.4 L (8.4-10.2) mg/dL Magnesium (1.6-2.3) mg/dL Total Bilirubin 0.20 (0.2-1.3) mg/dL AST 63 H (14-36) U/L ALT 31 (0-35) U/L Alkaline Phosphatase 149 H (38-126) U/L Serum Total Protein 4.6 L (6.3-8.2) g/dL Albumin 2.4 L (3.5-5.0) g/dL Radiology Exams: Radiology Procedures Category Date Time Status ABDOMEN 2 VIEW Stat Exams 07/05/17 17:04 Completed CHEST 2 VIEWS (PA AND LAT) Urgent Exams 07/06/17 Ordered Assessment/Plan (1) Clostridium difficile colitis Current Visit: Yes Status: Acute Assessment & Plan: On IV flagyl and po vancomycin, day #2. She failed outpatient flagyl. Still feeling poorly, but a little better than at admission yesterday afternoon. (2) Dehydration Current Visit: Yes Status: Acute Assessment & Plan: improved. Code(s): E86.0 - DEHYDRATION (3) Rheumatoid arthritis Current Visit: No Status: Chronic Qualifiers: Rheumatoid arthritis location: unspecified site Rheumatoid factor presence : unspecified presence Qualified Code(s): M06.9 - Rheumatoid arthritis, unspecified Code(s): M06.9 - RHEUMATOID ARTHRITIS, UNSPECIFIED (4) Failure of outpatient treatment Current Visit: Yes Status: Acute Code(s): Z78.9 - OTHER SPECIFIED HEALTH STATUS (5) Cough Current Visit: Yes Status: Acute Assessment & Plan: Worsening. Respiratory panel and CXR are pending. Code(s): R05 - COUGH (6) Pharyngitis Current Visit: Yes Status: Acute Qualifiers: Pharyngitis/tonsillitis etiology: unspecified etiology Qualified Code(s): J02.9 - Acute pharyngitis, unspecified Assessment & Plan: Exam is nonspecific, likely had some drainage overnight; also cough may be contributing. Code(s): J02.9 - ACUTE PHARYNGITIS, UNSPECIFIED
[2017-07-06 08:23] LABS: BAND 2 % (0.0-2.0); Lymphocytes 20 % (24-44); Monocyte 7 % (0.0-12.0); Neutrophils 71 % (36.0-66.0); Platelet Estimate NORMAL (NORMAL); Total Cells Counted 100
--- NOTE | 2017-07-06 08:34 | XRAY ---
Indication: Cough and dehydration. C. difficile. Comparison: July 04, 2017. PA/lateral chest demonstrates new subtle left upper and right lower lobe infiltrates without consolidation/large effusion. Remaining heart and bony thorax unremarkable.
[2017-07-06 08:40] LABS: INFLUENZA A POSITIVE (NEGATIVE); INFLUENZA B NEGATIVE (NEGATIVE); RESPIRATORY SYNCTIAL VIRUS NEGATIVE (Negative)
[2017-07-06] MEDS: ROCEPHIN 1 Gm-D5w 50 ml Bag** 1 G/50 ML IVPB IV SCH (11:00)
[2017-07-06] MEDS: Tamiflu 75MG Capsule PO SCH ×2 (11:16→21:51)
[2017-07-06] MEDS: FLAGYL 500 MG IVPB 500 MG/100 ML BAG IV SCH ×4 (11:16→21:51)
[2017-07-06] MEDS: Cyclobenzaprine 10 MG PO SCH ×3 (11:16→21:51)
[2017-07-06] MEDS: Protonix 40MG Tablet PO SCH (21:51)
[2017-07-07] MEDS: TYLENOL 325 MG PO PRN ×3 (00:11→16:24)
[2017-07-07] MEDS: Lactated Ringers 1,000 ML IV SCH ×3 (00:33→19:54)
[2017-07-07] MEDS: NON-FORMULARY ITEM PO SCH ×4 (00:50→17:56)
[2017-07-07 05:39] LABS: Granulocyte Absolute (ANC) 5.21 (1.4-6.9); Hematocrit 28.8 % (35-47); Mean Cell Volume 75.6 fl (78-100); Mean Corpuscular Hemoglobin 23.6 pg (26-32); Mean Corpuscular Hgb Concent. 31.3 g/dl (32-36); Mean Platelet Volume 9.5 fl (6-9.5); Platelet Count 296 K/mm3 (150-450); Red Blood Count 3.81 M/mm3 (4.1-5.4); Red Cell Distribution Width 17.3 % (11.5-14.0); White Blood Count 7.8 K/mm3 (4.0-10.5)
[2017-07-07 07:11] LABS: Lymphocytes 15 % (24-44); Monocyte 16 % (0.0-12.0); Neutrophils 69 % (36.0-66.0); Total Cells Counted 100
[2017-07-07 07:12] LABS: Poikilocytosis 1+; Polychromasia 1+; Toxic Granulation 1+
[2017-07-07 07:13] LABS: Platelet Estimate NORMAL (NORMAL)
--- NOTE | 2017-07-07 08:10 | PCM.NOTE ---
Date and Time: 07/07/17 0809 Subjective Assessment: patient still having significant diarrhea, coughing and feels weak. ran fever yesterday evening. Objective Exam General Appearance: no apparent distress, alert Skin Exam: normal color, warm, dry Respiratory Exam: normal breath sounds, lungs clear, No respiratory distress Cardiovascular Exam: regular rate/rhythm, normal heart sounds Gastrointestinal/Abdomen Exam: soft, No tenderness, No mass Extremity Exam: normal inspection, normal range of motion OBJECTIVE DATA Vital Signs: Vital Signs - 24 hr Temp Pulse Resp BP Pulse Ox 07/07/17 06:42 98.3 F 89 16 103/67 94 L 07/07/17 04:00 99 F 91 H 18 100/65 94 L 07/07/17 00:00 99.2 F 98 H 18 96/57 99 07/06/17 20:00 100.3 F 107 H 18 99/57 94 L 07/06/17 16:00 97.8 F 99 H 16 101/58 98 07/06/17 11:32 100.6 F 109 H 16 98/60 96 Pain Assessment - Last Documented Pain Intensity 4 Pain Scale Used 0-10 Pain Scale Intake and Output: Intake & Output 07/04/17 07/05/17 07/06/17 07/07/17 11:59 11:59 11:59 11:59 Intake Total 3055 3904 Output Total 1600 3000 Balance 1455 904 Weight 60.6 kg 62.5 kg Lab Results: Lab Results-Last 24 Hours 07/06/17 07/06/17 07/07/17 Range/Units 05:39 08:03 05:02 WBC 7.8 (4.0-10.5) K/mm3 RBC 3.81 L (4.1-5.4) M/mm3 Hgb 9.0 L (12.0-16.0) gm/dl Hct 28.8 L (35-47) % MCV 75.6 L (78-100) fl MCH 23.6 L (26-32) pg MCHC 31.3 L (32-36) g/dl RDW 17.3 H (11.5-14.0) % Plt Count 296 (150-450) K/mm3 MPV 9.5 (6-9.5) fl Segmented Neutrophils 71 H 69 H (36.0-66.0) % Band Neutrophils 2 (0.0-2.0) % Lymphocytes (Manual) 20 L 15 L (24-44) % Monocytes (Manual) 7 16 H (0.0-12.0) % Differential Comment NORMAL ABNORMAL Toxic Granulation 1+ Platelet Estimate NORMAL NORMAL (NORMAL) Polychromasia 1+ Poikilocytosis 1+ Influenza Type A Ag POSITIVE (NEGATIVE) Influenza Type B Ag NEGATIVE (NEGATIVE) RSV (PCR) NEGATIVE (Negative) Radiology Exams: Radiology Procedures Category Date Time Status ABDOMEN 2 VIEW Stat Exams 07/05/17 17:04 Completed CHEST 2 VIEWS (PA AND LAT) Urgent Exams 07/06/17 08:20 Completed Assessment/Plan (1) Clostridium difficile colitis Current Visit: Yes Status: Acute Assessment & Plan: on po vanc and IV flagyl (2) Failure of outpatient treatment Current Visit: Yes Status: Acute Code(s): Z78.9 - OTHER SPECIFIED HEALTH STATUS (3) Influenza B Current Visit: Yes Status: Acute Code(s): J10.1 - FLU DUE TO OTH IDENT INFLUENZA VIRUS W OTH RESP MANIFEST (4) Pneumonia Current Visit: Yes Status: Acute Assessment & Plan: on rocephin, continue with symptomatic treatment as well. Code(s): J18.9 - PNEUMONIA, UNSPECIFIED ORGANISM
[2017-07-07] MEDS: Tamiflu 75MG Capsule PO SCH ×2 (08:43→22:57)
[2017-07-07] MEDS: Cyclobenzaprine 10 MG PO SCH ×3 (08:43→22:57)
[2017-07-07] MEDS: FLAGYL 500 MG IVPB 500 MG/100 ML BAG IV SCH ×4 (09:25→22:56)
[2017-07-07] MEDS: ROCEPHIN 1 Gm-D5w 50 ml Bag** 1 G/50 ML IVPB IV SCH (10:39)
[2017-07-07] MEDS: Protonix 40MG Tablet PO SCH (22:57)
[2017-07-08] MEDS: NON-FORMULARY ITEM PO SCH ×4 (00:06→18:28)
[2017-07-08] MEDS: TYLENOL 325 MG PO PRN ×3 (01:17→21:23)
[2017-07-08 05:53] LABS: Granulocyte Absolute (ANC) 5.55 (1.4-6.9); Hematocrit 29.7 % (35-47); Hemoglobin 9.2 gm/dl (12.0-16.0); Mean Corpuscular Hemoglobin 23.5 pg (26-32); Mean Platelet Volume 9.4 fl (6-9.5); Platelet Count 367 K/mm3 (150-450); Red Blood Count 3.91 M/mm3 (4.1-5.4); Red Cell Distribution Width 17.6 % (11.5-14.0); White Blood Count 7.7 K/mm3 (4.0-10.5)
[2017-07-08] MEDS: Lactated Ringers 1,000 ML IV SCH ×2 (06:09→14:49)
[2017-07-08 06:18] LABS: ALBUMIN 2.6 g/dL (3.5-5.0); ALKALINE PHOSPHATASE 188 U/L (38-126); BLOOD UREA NITROGEN 5 mg/dL (7-17); CHLORIDE 104 mmol/L (98-107); Calcium 7.8 mg/dL (8.4-10.2); Carbon Dioxide 28 mmol/L (22-30); Creatinine 1 0.57 mg/dL (0.52-1.04); Glucose 109 mg/dL (74-106); Potassium 3.5 mmol/L (3.5-5.1); SGOT/AST 33 U/L (14-36); SGPT/ALT 21 U/L (0-35); SODIUM 140 mmol/L (137-145)
[2017-07-08 07:52] LABS: BAND 10 % (0.0-2.0); Lymphocytes 23 % (24-44); Monocyte 11 % (0.0-12.0); Neutrophils 56 % (36.0-66.0); Total Cells Counted 100
[2017-07-08 07:53] LABS: Hypochromia 1+; Platelet Estimate NORMAL (NORMAL)
--- NOTE | 2017-07-08 08:28 | PCM.NOTE ---
Date and Time: 07/08/17826 Subjective Assessment: still having severe diarrhea, tolerating po intake. cough is much better at this time. Objective Exam General Appearance: no apparent distress, alert Skin Exam: normal color, warm, dry Respiratory Exam: normal breath sounds, lungs clear, No respiratory distress Cardiovascular Exam: regular rate/rhythm, normal heart sounds Gastrointestinal/Abdomen Exam: soft, No tenderness, No mass Extremity Exam: normal inspection, normal range of motion OBJECTIVE DATA Vital Signs: Vital Signs - 24 hr Temp Pulse Resp BP Pulse Ox 07/08/17 07:58 98.4 F 84 16 118/77 97 07/08/17 04:00 98.0 F 85 18 110/71 98 07/08/17 00:00 98.7 F 07/07/17 20:00 98.8 F 105 H 17 105/66 96 07/07/17 16:05 99 F 100 H 18 109/70 99 07/07/17 11:14 99.5 F 92 H 16 92/53 93 L 07/07/17 08:50 99.6 F Pain Assessment - Last Documented Pain Intensity 0 Pain Scale Used 0-10 Pain Scale Intake and Output: Intake & Output 07/05/17 07/06/17 07/07/17 07/08/17 11:59 11:59 11:59 11:59 Intake Total 3055 4024 2349 Output Total 1600 3300 3000 Balance 1455 724 -651 Weight 60.6 kg 62.5 kg 62.5 kg Lab Results: Lab Results-Last 24 Hours 07/08/17 07/08/17 Range/Units 05:40 05:40 WBC 7.7 (4.0-10.5) K/mm3 RBC 3.91 L (4.1-5.4) M/mm3 Hgb 9.2 L (12.0-16.0) gm/dl Hct 29.7 L (35-47) % MCV 76.0 L (78-100) fl MCH 23.5 L (26-32) pg MCHC 31.0 L (32-36) g/dl RDW 17.6 H (11.5-14.0) % Plt Count 367 (150-450) K/mm3 MPV 9.4 (6-9.5) fl Segmented Neutrophils 56 (36.0-66.0) % Band Neutrophils 10 H (0.0-2.0) % Lymphocytes (Manual) 23 L (24-44) % Monocytes (Manual) 11 (0.0-12.0) % Differential Comment ABNORMAL Platelet Estimate NORMAL (NORMAL) Hypochromasia 1+ Sodium 140 (137-145) mmol/L Potassium 3.5 (3.5-5.1) mmol/L Chloride 104 (98-107) mmol/L Carbon Dioxide 28 (22-30) mmol/L Anion Gap 11.0 (5-15) MEQ/L BUN 5 L (7-17) mg/dL Creatinine 0.57 (0.52-1.04) mg/dL Estimated GFR > 60 ML/MIN Glucose 109 H (74-106) mg/dL Calcium 7.8 L (8.4-10.2) mg/dL Magnesium 1.9 (1.6-2.3) mg/dL Total Bilirubin 0.20 (0.2-1.3) mg/dL AST 33 (14-36) U/L ALT 21 (0-35) U/L Alkaline Phosphatase 188 H (38-126) U/L Serum Total Protein 5.0 L (6.3-8.2) g/dL Albumin 2.6 L (3.5-5.0) g/dL Radiology Exams: Radiology Procedures Category Date Time Status CHEST 2 VIEWS (PA AND LAT) Urgent Exams 07/06/17 08:20 Completed Multi-Disciplinary Progress Notes: Multi-Disciplinary Progress Notes 07/07/17 10:15 (created 07/07/17 15:08) Case Management Note by Pricila Yang CONTINUES TO PLAN TO RETURN HOME TO PRE EPISODIC LEVEL OF [facility]. INDEPENDENT WITH ALL ADL'S. WILL FOLLOW. Initialized on 07/07/17 15:08 - END OF NOTE Assessment/Plan (1) Clostridium difficile colitis Current Visit: Yes Status: Acute Assessment & Plan: on po vanc and IV flagyl (2) Failure of outpatient treatment Current Visit: Yes Status: Acute Code(s): Z78.9 - OTHER SPECIFIED HEALTH STATUS (3) Influenza B Current Visit: Yes Status: Acute Code(s): J10.1 - FLU DUE TO OTH IDENT INFLUENZA VIRUS W OTH RESP MANIFEST (4) Pneumonia Current Visit: Yes Status: Acute Code(s): J18.9 - PNEUMONIA, UNSPECIFIED ORGANISM
[2017-07-08] MEDS: FLAGYL 500 MG IVPB 500 MG/100 ML BAG IV SCH ×4 (09:29→21:23)
[2017-07-08] MEDS: Cyclobenzaprine 10 MG PO SCH ×3 (09:29→21:22)
[2017-07-08] MEDS: Tamiflu 75MG Capsule PO SCH ×2 (09:29→21:23)
[2017-07-08] MEDS: Protonix 40MG Tablet PO SCH (21:23)
[2017-07-09] MEDS: NON-FORMULARY ITEM PO SCH ×4 (00:32→18:13)
[2017-07-09] MEDS: TYLENOL 325 MG PO PRN ×3 (02:32→21:08)
[2017-07-09] MEDS: Lactated Ringers 1,000 ML IV SCH ×2 (04:48→16:31)
[2017-07-09 06:07] LABS: Granulocyte Absolute (ANC) 3.35 (1.4-6.9); Hematocrit 27.4 % (35-47); Hemoglobin 8.5 gm/dl (12.0-16.0); Mean Cell Volume 76.3 fl (78-100); Platelet Count 170 K/mm3 (150-450); Red Blood Count 3.59 M/mm3 (4.1-5.4); Red Cell Distribution Width 17.2 % (11.5-14.0); White Blood Count 5.7 K/mm3 (4.0-10.5)
[2017-07-09 06:16] LABS: ALBUMIN 2.3 g/dL (3.5-5.0); ALKALINE PHOSPHATASE 143 U/L (38-126); ANION GAP 8.9 MEQ/L (5-15); BLOOD UREA NITROGEN 8 mg/dL (7-17); CHLORIDE 106 mmol/L (98-107); Calcium 7.8 mg/dL (8.4-10.2); Carbon Dioxide 28 mmol/L (22-30); Creatinine 1 0.57 mg/dL (0.52-1.04); Glucose 92 mg/dL (74-106); Potassium 3.4 mmol/L (3.5-5.1); SGOT/AST 32 U/L (14-36); SGPT/ALT 17 U/L (0-35); SODIUM 139 mmol/L (137-145); Total Protein 4.6 g/dL (6.3-8.2)
[2017-07-09 06:27] LABS: Mean Corpuscular Hemoglobin 23.6 pg (26-32)
[2017-07-09] MEDS: Tamiflu 75MG Capsule PO SCH ×2 (08:44→21:08)
[2017-07-09] MEDS: Cyclobenzaprine 10 MG PO SCH ×2 (08:44→21:08)
[2017-07-09] MEDS: FLAGYL 500 MG IVPB 500 MG/100 ML BAG IV SCH ×4 (08:45→21:07)
[2017-07-09] MEDS ORDERED: Cyclobenzaprine 10 MG PO SCH (10:00)
--- NOTE | 2017-07-09 10:02 | PCM.NOTE ---
Date and Time: 07/09/17956 Subjective Assessment: She is feeling a little better today slept a little more last night still having bowel movements small loose to liquid up to 3 times per hour but did have a break in them finally last night she has some bleeding with wiping now. no pain in the abdomen her energy is a little better and no fevers now Objective Exam General Appearance: no apparent distress Neurologic Exam: alert, oriented x 3, cooperative Skin Exam: warm, dry Ears, Nose, Throat Exam: moist mucous membranes Neck Exam: non-tender, supple Respiratory Exam: normal breath sounds, lungs clear Cardiovascular Exam: regular rate/rhythm, normal heart sounds Gastrointestinal/Abdomen Exam: soft, normal bowel sounds, No tenderness, No distention, No mass, No guarding, No rebound Extremity Exam: normal inspection, No pedal edema OBJECTIVE DATA Vital Signs: Vital Signs - 24 hr Temp Pulse Resp BP BP Pulse Ox 07/09/17 07:42 98.1 F 84 16 110/75 97 07/09/17 04:00 98.3 F 87 16 103/73 96 07/09/17 00:08 98.9 F 90 16 114/69 96 07/08/17 20:00 99.5 F 102 H 18 110/71 97 07/08/17 16:00 98.6 F 93 H 18 115/70 97 07/08/17 11:51 99.0 F 99 H 18 117/73 94 L Pain Assessment - Last Documented Pain Intensity 5 Pain Scale Used 0-10 Pain Scale Intake and Output: Intake & Output 07/06/17 07/07/17 07/08/17 07/09/17 11:59 11:59 11:59 11:59 Intake Total 3055 4024 2589 4663 Output Total 1600 3300 3000 2000 Balance 1455 724 -538 0133 Weight 60.6 kg 62.5 kg 63.9 kg 63.5 kg Lab Results: Lab Results-Last 24 Hours 07/09/17 07/09/17 Range/Units 05:32 05:32 WBC 5.7 (4.0-10.5) K/mm3 RBC 3.59 L (4.1-5.4) M/mm3 Hgb 8.5 L (12.0-16.0) gm/dl Hct 27.4 L (35-47) % MCV 76.3 L (78-100) fl MCH 23.6 L (26-32) pg MCHC 31.0 L (32-36) g/dl RDW 17.2 H (11.5-14.0) % Plt Count 170 (150-450) K/mm3 MPV 11.0 H (6-9.5) fl Sodium 139 (137-145) mmol/L Potassium 3.4 L (3.5-5.1) mmol/L Chloride 106 (98-107) mmol/L Carbon Dioxide 28 (22-30) mmol/L Anion Gap 8.9 (5-15) MEQ/L BUN 8 (7-17) mg/dL Creatinine 0.57 (0.52-1.04) mg/dL Estimated GFR > 60 ML/MIN Glucose 92 (74-106) mg/dL Calcium 7.8 L (8.4-10.2) mg/dL Total Bilirubin 0.20 (0.2-1.3) mg/dL AST 32 (14-36) U/L ALT 17 (0-35) U/L Alkaline Phosphatase 143 H (38-126) U/L Serum Total Protein 4.6 L (6.3-8.2) g/dL Albumin 2.3 L (3.5-5.0) g/dL Assessment/Plan (1) Clostridium difficile colitis Current Visit: Yes Status: Acute Assessment & Plan: + Nap 1 gene still copious diarrhea systemic symptoms improving will see if we can cut back the iv fluids a little try some questran as well continue iv flagyl and po vanc (2) Influenza A Current Visit: Yes Status: Acute Code(s): J10.1 - FLU DUE TO OTH IDENT INFLUENZA VIRUS W OTH RESP MANIFEST (3) Rheumatoid arthritis Current Visit: Yes Status: Chronic Qualifiers: Rheumatoid arthritis location: unspecified site Rheumatoid factor presence : unspecified presence Qualified Code(s): M06.9 - Rheumatoid arthritis, unspecified Code(s): M06.9 - RHEUMATOID ARTHRITIS, UNSPECIFIED (4) Secondary immune deficiency disorder Current Visit: Yes Status: Acute Assessment & Plan: secondary to methotrexate usually takes on Sundays Code(s): D89.89 - OTH DISRD INVOLVING THE IMMUNE MECHANISM, NEC (5) Anemia Current Visit: Yes Status: Acute Code(s): D64.9 - ANEMIA, UNSPECIFIED
[2017-07-09] MEDS: QUESTRAN Light 4 GM Packet PO SCH ×2 (11:17→21:07)
[2017-07-09 14:09] LABS: BAND 2 % (0.0-2.0); Eosinophil 2 % (0.00-3.0); Lymphocytes 38 % (24-44); Monocyte 6 % (0.0-12.0); Neutrophils 52 % (36.0-66.0); Total Cells Counted 100
[2017-07-09 14:10] LABS: Platelet Estimate NP1 (NORMAL)
[2017-07-09] MEDS: Protonix 40MG Tablet PO SCH (21:07)
[2017-07-10] MEDS: NON-FORMULARY ITEM PO SCH ×5 (00:16→23:05)
--- NOTE | 2017-07-10 08:59 | PCM.NOTE ---
Date and Time: 07/10/17 0857 Subjective Assessment: she is feeling ok. down to having a bowel movement about every 2 hours now which is improved and most recent bm she felt like had more consistency. no fever or chills. tolerating po well. no abdominal pain. Objective Exam General Appearance: no apparent distress, alert Neurologic Exam: alert, oriented x 3, cooperative, normal mood/affect, nml cerebellar function, sensation nml, No motor deficits Skin Exam: normal color, warm, dry Eye Exam: PERRL, EOMI, eyes nml inspection Ears, Nose, Throat Exam: normal ENT inspection, pharynx normal, moist mucous membranes Neck Exam: normal inspection, non-tender, supple, full range of motion Respiratory Exam: normal breath sounds, lungs clear, No respiratory distress Cardiovascular Exam: regular rate/rhythm, normal heart sounds Gastrointestinal/Abdomen Exam: soft, No tenderness, No mass Extremity Exam: normal inspection, normal range of motion Back Exam: normal inspection, normal range of motion, No CVA tenderness, No vertebral tenderness Pelvic Exam: deferred Rectal Exam: deferred OBJECTIVE DATA Vital Signs: Vital Signs - 24 hr Temp Pulse Resp BP Pulse Ox 07/10/17 07:17 98.1 F 87 18 119/75 97 07/10/17 04:00 98.4 F 76 16 105/72 96 07/10/17 00:05 98.7 F 76 15 110/72 97 07/09/17 20:00 99.4 F 91 H 16 120/73 96 07/09/17 16:00 98.8 F 96 H 16 118/78 96 07/09/17 12:00 98.5 F 87 18 118/72 96 Oxygen-Last 24 hours O2 Percentage 6 Liters = 44% Pain Assessment - Last Documented Pain Intensity 0 Pain Scale Used 0-10 Pain Scale Intake and Output: Intake & Output 07/07/17 07/08/17 07/09/17 07/10/17 11:59 11:59 11:59 11:59 Intake Total 4024 2589 4663 3480 Output Total 3300 3000 2000 2350 Balance 724 -411 2663 1130 Weight 62.5 kg 63.9 kg 63.5 kg 63.8 kg Lab Results: Lab Results-Last 24 Hours 07/09/17 Range/Units 05:32 Segmented Neutrophils 52 (36.0-66.0) % Band Neutrophils 2 (0.0-2.0) % Lymphocytes (Manual) 38 (24-44) % Monocytes (Manual) 6 (0.0-12.0) % Eosinophils (Manual) 2 (0.00-3.0) % Differential Comment NORMAL Platelet Estimate NP1 (NORMAL) Assessment/Plan (1) Clostridium difficile colitis Current Visit: Yes Status: Acute Assessment & Plan: improving now with bm down to every 2 hours slighlty more consistency she states continue iv flagyl and po vanc will stop iv fluids today and see how she does maintaining her hydration po if continues improvement possibly home tomorrow (2) Influenza A Current Visit: Yes Status: Acute Code(s): J10.1 - FLU DUE TO OTH IDENT INFLUENZA VIRUS W OTH RESP MANIFEST (3) Rheumatoid arthritis Current Visit: Yes Status: Chronic Qualifiers: Rheumatoid arthritis location: unspecified site Rheumatoid factor presence : unspecified presence Qualified Code(s): M06.9 - Rheumatoid arthritis, unspecified Code(s): M06.9 - RHEUMATOID ARTHRITIS, UNSPECIFIED (4) Secondary immune deficiency disorder Current Visit: Yes Status: Acute Code(s): D89.89 - OTH DISRD INVOLVING THE IMMUNE MECHANISM, NEC (5) Anemia Current Visit: Yes Status: Acute Code(s): D64.9 - ANEMIA, UNSPECIFIED
[2017-07-10] MEDS: QUESTRAN Light 4 GM Packet PO SCH ×2 (10:18→23:05)
[2017-07-10] MEDS: FLAGYL 500 MG IVPB 500 MG/100 ML BAG IV SCH ×4 (10:18→23:04)
[2017-07-10] MEDS: Tamiflu 75MG Capsule PO SCH ×2 (10:19→23:05)
[2017-07-10] MEDS: Cyclobenzaprine 10 MG PO SCH ×2 (10:19→23:04)
[2017-07-10] MEDS: TYLENOL 325 MG PO PRN (10:39)
[2017-07-10] MEDS: Protonix 40MG Tablet PO SCH (23:05)
[2017-07-11] MEDS: NON-FORMULARY ITEM PO SCH ×3 (05:33→17:25)
--- NOTE | 2017-07-11 08:44 | PCM.NOTE ---
Date and Time: 07/11/17 0840 Subjective Assessment: She had quite a bit of heartburn overnight. She has still beenhaving stools about every 2 hours. they were firming up yesterday but this morning they have been watery. She is tolerating po. - Review of Systems Constitutional: No Fever Objective Exam General Appearance: no apparent distress, alert Neurologic Exam: oriented x 3, cooperative Skin Exam: normal color, warm, dry, No rash Respiratory Exam: normal breath sounds, lungs clear, No crackles/rales, No rhonchi, No wheezing Cardiovascular Exam: regular rate/rhythm, normal heart sounds Gastrointestinal/Abdomen Exam: soft, normal bowel sounds, tenderness (epigastrum ), No guarding, No rebound Extremity Exam: normal inspection, No pedal edema, No swelling OBJECTIVE DATA Vital Signs: Vital Signs - 24 hr Temp Pulse Resp BP Pulse Ox 07/11/17 08:03 98 F 72 20 116/62 95 07/11/17 04:00 98.5 F 87 16 104/67 96 07/11/17 00:03 98.5 F 90 16 116/56 97 07/10/17 19:58 98.4 F 83 16 117/73 98 07/10/17 16:00 98.0 F 67 18 127/79 98 07/10/17 11:56 98.7 F 83 16 111/72 97 Pain Assessment - Last Documented Pain Intensity 8 Pain Scale Used 0-10 Pain Scale Intake and Output: Intake & Output 07/08/17 07/09/17 07/10/17 07/11/17 11:59 11:59 11:59 11:59 Intake Total 2589 4663 3480 1500 Output Total 3000 2000 2350 1100 Balance -411 2663 1130 400 Weight 63.9 kg 63.5 kg 63.8 kg 62.4 kg Assessment/Plan (1) Clostridium difficile colitis Current Visit: Yes Status: Acute Assessment & Plan: She has regressed a bit since yesterday, back to liquid stools. continue IV flagly and po vancomycin. (2) Dehydration Current Visit: Yes Status: Resolved Code(s): E86.0 - DEHYDRATION (3) Rheumatoid arthritis Current Visit: Yes Status: Chronic Qualifiers: Rheumatoid arthritis location: unspecified site Rheumatoid factor presence : unspecified presence Qualified Code(s): M06.9 - Rheumatoid arthritis, unspecified Code(s): M06.9 - RHEUMATOID ARTHRITIS, UNSPECIFIED (4) Failure of outpatient treatment Current Visit: Yes Status: Acute Code(s): Z78.9 - OTHER SPECIFIED HEALTH STATUS (5) Pharyngitis Current Visit: Yes Status: Acute Qualifiers: Pharyngitis/tonsillitis etiology: unspecified etiology Qualified Code(s): J02.9 - Acute pharyngitis, unspecified Code(s): J02.9 - ACUTE PHARYNGITIS, UNSPECIFIED (6) Influenza A Current Visit: Yes Status: Acute Assessment & Plan: Was treated with tamiflu Code(s): J10.1 - FLU DUE TO OTH IDENT INFLUENZA VIRUS W OTH RESP MANIFEST
[2017-07-11] MEDS: QUESTRAN Light 4 GM Packet PO SCH ×2 (09:39→22:52)
[2017-07-11] MEDS: Acidophilus TABLET PO SCH ×3 (09:39→22:50)
[2017-07-11] MEDS: Cyclobenzaprine 10 MG PO SCH ×2 (09:39→22:50)
[2017-07-11] MEDS: FLAGYL 500 MG IVPB 500 MG/100 ML BAG IV SCH ×5 (10:00→22:50)
[2017-07-11] MEDS: TYLENOL 325 MG PO PRN ×2 (14:43→22:52)
[2017-07-11] MEDS: Protonix 40MG Tablet PO SCH (22:51)
[2017-07-12] MEDS: NON-FORMULARY ITEM PO SCH ×2 (00:25→06:50)
[2017-07-12 07:56] VITALS: BP 110/72; PULSE 79; O2SAT 96
[2017-07-12 08:11] LABS: Hemoglobin 8.7 gm/dl (12.0-16.0); Mean Cell Volume 77.6 fl (78-100); Mean Corpuscular Hgb Concent. 31.1 g/dl (32-36); Mean Platelet Volume 8.9 fl (6-9.5); Platelet Count 602 K/mm3 (150-450); Red Blood Count 3.61 M/mm3 (4.1-5.4); Red Cell Distribution Width 17.4 % (11.5-14.0); White Blood Count 5.4 K/mm3 (4.0-10.5)
[2017-07-12 08:40] LABS: ANION GAP 11.3 MEQ/L (5-15); BLOOD UREA NITROGEN 15 mg/dL (7-17); CHLORIDE 104 mmol/L (98-107); Calcium 8.1 mg/dL (8.4-10.2); Carbon Dioxide 29 mmol/L (22-30); Glucose 83 mg/dL (74-106); Potassium 4.1 mmol/L (3.5-5.1); SODIUM 140 mmol/L (137-145)
--- NOTE | 2017-07-12 08:47 | PCM.DS ---
Discharge Summary Date of Admission: 07/05/17 16:02 Admitting Physician: PHILIP SALDANA Primary Care Provider: PHILIP SALDANA Allergies Allergies No Known Drug Allergies Allergy (Unverified 07/04/16 14:34) Hospital Summary - Hospital Course Hospital Course: Pt with hx RA on biologic was treated outpatient for C. diff diarrhea; it continued to worsen so she came to see Cici العراقي NP, found to be dehydrated and was admitted on po vancomycin and IV flagyl. I saw the pt and she c/o cough, worsening after admission - was found to be positive for Influenza A. She has continued to have watery bowel movements, although intermittently improved for the last 2 days. Overnight she had 3 BMs (since midnight) which is a distinct improvement. Still having BMs after eating. - Vitals & Intake/Output Vital Signs: Vital Signs Temperature 98.1 F 07/12/17 07:55 Pulse Rate 79 07/12/17 07:55 Respiratory Rate 16 07/12/17 07:55 Blood Pressure 110/72 07/12/17 07:55 O2 Sat by Pulse Oximetry 96 07/12/17 07:55 Oxygen-Last Documented O2 Percentage 6 Liters = 44% Intake & Output: Intake & Output 07/09/17 07/10/17 07/11/17 07/12/17 11:59 11:59 11:59 11:59 Intake Total 4663 3480 1620 1822 Output Total 1999 2350 1100 3150 Balance 2663 1130 520 -1328 Weight 63.5 kg 63.8 kg 62.4 kg 62.6 kg - Lab Result Diagrams: 07/12/17 08:09 07/09/17 05:32 Lab Results-Last 24 Hrs: Lab Results-Last 24 Hours 07/12/17 Range/Units 08:09 WBC 5.4 (4.0-10.5) K/mm3 RBC 3.61 L (4.1-5.4) M/mm3 Hgb 8.7 L (12.0-16.0) gm/dl Hct 28.0 L (35-47) % MCV 77.6 L (78-100) fl MCH 24.0 L (26-32) pg MCHC 31.1 L (32-36) g/dl RDW 17.4 H (11.5-14.0) % Plt Count 602 H (150-450) K/mm3 MPV 8.9 (6-9.5) fl Micro Results-Entire Visit: Microbiology 07/05/17 20:54 Blood Culture Gram Stain - Final Blood Not Reportable Blood Culture - Final NO GROWTH 07/05/17 20:54 Blood Culture Gram Stain - Final Blood No growth. Blood Culture - Final NO GROWTH Discharge Exam General Appearance: no apparent distress, alert Neurologic Exam: oriented x 3, cooperative Skin Exam: normal color, warm, dry, No rash Ears, Nose, Throat Exam: moist mucous membranes Neck Exam: normal inspection Respiratory Exam: normal breath sounds, lungs clear, No crackles/rales, No rhonchi, No wheezing Cardiovascular Exam: regular rate/rhythm, normal heart sounds, No murmur Gastrointestinal/Abdomen Exam: soft, normal bowel sounds, tenderness (diffuse, mild), No distention, No mass, No guarding, No rebound Extremity Exam: normal inspection, No pedal edema, No swelling Back Exam: normal inspection, No rash Final Diagnosis/Problem List - Final Discharge Diagnosis/Problem (1) Clostridium difficile colitis Current Visit: Yes Status: Acute Assessment & Plan: Improved. Will send her home on both po vancomycin and po flagyl, as pt is immunosuppressed. (2) Dehydration Current Visit: Yes Status: Resolved (3) Rheumatoid arthritis Current Visit: Yes Status: Chronic Assessment & Plan: Will send a copy of this summary to her printing roller handler, Dr. Mason. We held the methotrexate (and of course she has not had Actemra during her stay). I would like for her to contact DR. Mason before resuming the methotrexate. (4) Pharyngitis Current Visit: Yes Status: Resolved (5) Influenza A Current Visit: Yes Status: Acute Assessment & Plan: Finished course of tamiflu. (6) Anemia Current Visit: Yes Status: Acute Assessment & Plan: Baseline Hg 9.2; to 8.7, stable from 8.5 yesterday. Check outpatient in 1 week. Likely dilutional superimposed on pre-existing anemia, which could be due to chronic disease - defer further workup to outpatient. - Discharge Disposition: Home, Self-Care Condition: Good Prescriptions: New Lactobacillus Acidophilus [Acidophilus TABLET] 1 tab PO TID tablet Metronidazole 500 mg [Flagyl 500 MG] 500 mg PO QID #40 tablet Vancomycin HCl [Vancocin HCl] 250 mg PO QID #28 capsule Continue Methotrexate Sodium [Methotrexate] 2.5 mg PO UD Folic Acid 1 mg PO DAILY Cyclobenzaprine HCl [Flexeril] 10 mg PO BID Omeprazole 20 MG [Prilosec 20 mg] 20 mg PO HS Tocilizumab 400 mg/20 ml [Actemra] 400 mg IV UD Nitroglycerin 0.4 mg Tablet [Nitrostat 0.4 MG Tablet] 0.4 mg SL PRN PRN #1 bottle PRN Reason: Chest Pain Additional Instructions: Please contact Dr. Mason before resuming your methotrexate. Please get a CBC outpatient in the next week. Follow up with: PHILIP SALDANA [Primary Care Provider] - 1 Week
== END 2017-07-12 10:15 | disposition home or self-care (01) | DRG 371 ==
LOC: MED SURG 16:02
PROVIDERS: ADMIT Family Medicine; ATTEND Family Medicine
DX: A04.72 Enterocolitis due to Clostridium difficile, not specified as recurrent (principal); J11.00 Influenza due to unidentified influenza virus with unspecified type of pneumonia; J18.9 Pneumonia, unspecified organism; E86.0 Dehydration; M06.9 Rheumatoid arthritis, unspecified; J02.9 Acute pharyngitis, unspecified; D64.9 Anemia, unspecified; Z79.899 Other long term (current) drug therapy; D89.89 Other specified disorders involving the immune mechanism, not elsewhere classified
CPT/HCPCS: 36415; 71046; 74021; 80048; 80053; 83605; 83735; 85025; 85027; 87040; 87631; J0696; J2405; A9270-GY

== ENCOUNTER 2021-06-10 06:28 | Day surgery (SDC) | payer MEDICARE ==
[2021-06-10] MEDS ORDERED: Lactated Ringers 1,000 ML IV SCH (06:30)
[2021-06-10] MEDS ORDERED: DIPRIVAN 200 MG/20 ML IV ONE ×3 (07:46→08:13)
[2021-06-10] MEDS ORDERED: Versed 2 MG/2 ML Injection ONE (07:46)
[2021-06-10 09:16] VITALS: O2SAT 100
[2021-06-10 09:26] VITALS: BP 131/79; PULSE 62
--- NOTE | 2021-06-10 13:21 | OP ---
SURGERY DATE/TIME: 06/10/2021 0759 PREOPERATIVE DIAGNOSIS: Screening colonoscopy. POSTOPERATIVE DIAGNOSIS: Small sigmoid sessile polyp. PROCEDURE: Colonoscopy. SURGEON: Mihir Alfonso M.D. ANESTHESIA: MAC by Zackary Rosenthal CRNA. ESTIMATED BLOOD LOSS: Minimal. SPECIMENS: Cold forceps polypectomy from distal sigmoid colon. DESCRIPTION OF PROCEDURE: After informed written consent was obtained, the patient was taken to the endoscopy suite. She was placed in left lateral decubitus position and had anesthesia titrated to desired level of consciousness. Digital rectal exam showed normal sphincter tone and no internal lesions. The scope was inserted into the rectum and sequentially the entire colonic mucosa was traversed. The level of cecum was reached and verified with direct visualization of the ileocecal valve. Upon withdrawal careful mucosal inspection revealed no gross abnormalities. Prep was noted to be fair with some liquid stool present. There was a small sessile polyp in the distal sigmoid colon this was grasped with forceps and removed in its entirety with minimal blood loss. Prior to withdrawal retroflexion was performed and showed no internal lesions. The scope was removed. The patient was transferred to the recovery room in good condition.
== END 2021-06-10 09:30 | disposition home or self-care (01) ==
LOC: SDC 06:28
PROVIDERS: ATTEND Family Medicine
DX: Z12.11 Encounter for screening for malignant neoplasm of colon (principal); D12.5 Benign neoplasm of sigmoid colon
CPT/HCPCS: 84703; 88305; J2250; J2704

== ENCOUNTER 2022-04-27 20:45 | Emergency (ER) | payer MEDICARE ==
[2022-04-27] MEDS ORDERED: Sodium Chloride 0.9% 1000 ML 1,000 ML IV STA (21:20)
[2022-04-27] MEDS ORDERED: BABY ASPIRIN 81 MG CHEW PO ONE (21:20)
[2022-04-27] MEDS ORDERED: Sodium Chloride 0.9% 1000 ML 1,000 ML ONE (21:56)
[2022-04-27] MEDS ORDERED: BABY ASPIRIN 81 MG CHEW ONE (21:56)
[2022-04-27 21:58] LABS: Absolute Neutrophil Ct (ANC) 4.31 x10^3/uL (1.4-6.9); Basophil (Absolute #) 0.04 x10^3/uL (0-0.4); Eosinophil % 2.2 % (0.00-5.0); Eosinophil (Absolute #) 0.17 x10^3/uL (0-0.5); Hematocrit 37.2 % (35-47); Lymphocyte (Absolute #) 2.54 x10^3/uL (1.0-4.6); Lymphocytes % 32.5 % (24.0-44.0); Mean Cell Volume 86.5 fL (78-100); Mean Corpuscular Hemoglobin 27.9 pg (26-32); Mean Corpuscular Hgb Concent. 32.3 g/dL (32-36); Mean Platelet Volume 10.4 fL (7.5-11.0); Monocyte (Absolute #) 0.74 x10^3/uL (0.0-1.3); Monocytes % 9.5 % (0.0-12.0); Neutrophil % 55.2 % (36.0-66.0); Platelet Count 226 x10^3/uL (150-450); Red Cell Distribution Width 13.4 % (11.5-14.0); White Blood Count 7.8 x10^3/uL (4.0-10.5)
--- NOTE | 2022-04-27 22:02 | ERPHSYRPT ---
- History of Present Illness Time Seen by Provider: 04/27/22 20:47 Source: patient Exam Limitations: no limitations Patient Subjective Stated Complaint: lightheadedness and tingling to left shoulder/arm Triage Nursing Assessment: pt ambulated into ER without diff, spouse at bedside. Pt c/o lightheadedness that comes and goes, started last evening and had some tingling to left shoulder/arm last night as well, but has lasted longer. Pt able to move it without difficulty. Radial pulse strong and present. Physician History: 52 years old healthy female presented in the ER with chief complaint of feeling lightheadedness off and on since yesterday. Patient reports she has some discomfort in the left upper chest with radiation to the left arm up to the palm with tingling sensation and feeling heaviness. Patient reports lightheadedness last for few seconds and improves on its own and is more when she is ambulating. Denies any headache, blurry vision, focal numbness or weakness. No history of CAD. Timing/Duration: yesterday, intermittent, gradual onset, worse Severity: moderate Associated Symptoms: No weakness Allergies/Adverse Reactions: No Known Drug Allergies Allergy (Verified 04/27/22 21:00) Home Medications: Cyclobenzaprine HCl [Flexeril] 10 mg PO QID 07/04/16 [History] Abatacept/Maltose 250 MG [Orencia 250 MG Vial] 250 mg IV UD 06/09/21 [History] Omeprazole 1 cap PO DAILY 06/10/21 [History] Hx Tetanus, Diphtheria Vaccination/Date Given: No Hx Influenza Vaccination/Date Given: Yes Hx Pneumococcal Vaccination/Date Given: No Immunizations Up to Date: No Travel Risk - International Travel Have you traveled outside of the country in past 3 weeks: No - Coronavirus Screening Are you exhibiting any of the following symptoms?: No Close contact with a COVID-19 positive Pt in past 14-21 Days: No - Vaccine Status Have you recieved a Covid-19 vaccination: Yes Vasc Tech: Moderna - Vaccination Dates Date of 2cond Vaccination (if applicable): . - Review of Systems Constitutional: No Symptoms Eyes: No Symptoms Ears, Nose, & Throat: No Symptoms Respiratory: No Symptoms Cardiac: Chest Pain Abdominal/Gastrointestinal: No Symptoms Genitourinary Symptoms: No Symptoms Musculoskeletal: No Symptoms Neurological: Dizziness Psychological: No Symptoms Endocrine: No Symptoms Hematologic/Lymphatic: No Symptoms Immunological/Allergic: No Symptoms - Past Medical History Pertinent Past Medical History: Yes Neurological History: No Pertinent History ENT History: No Pertinent History Cardiac History: Other Respiratory History: No Pertinent History Endocrine Medical History: Other Musculoskeletal History: Fibromyalgia, Rheumatoid Arthritis GI Medical History: GERD, Irritable Bowel History: No Pertinent History Psycho-Social History: No Pertinent History Female Reproductive Disorders: No Pertinent History Other Medical History: Mitral valve prolapse; anemia - Past Surgical History Past Surgical History: Yes Neuro Surgical History: No Pertinent History Cardiac: No Pertinent History Respiratory: No Pertinent History Gastrointestinal: No Pertinent History Genitourinary: No Pertinent History Musculoskeletal: No Pertinent History Female Surgical History: Section - Social History Smoking Status: Never smoker Exposure to second hand smoke: No Drug Use: none Patient Lives Alone: No - Nursing Vital Signs Nursing Vital Signs: Initial Vital Signs Temperature 98.3 F 04/27/22 20:52 Pulse Rate 92 H 04/27/22 20:52 Respiratory Rate 18 04/27/22 20:52 Blood Pressure 164/109 04/27/22 20:52 O2 Sat by Pulse Oximetry 100 04/27/22 20:52 Pain Scale Pain Intensity 0 - Physical Exam General Appearance: no apparent distress, alert Eye Exam: PERRL/EOMI Ears, Nose, Throat Exam: normal ENT inspection, TMs normal, pharynx normal, moist mucous membranes Neck Exam: normal inspection, non-tender, supple, full range of motion Respiratory Exam: normal breath sounds, chest tenderness (Mild discomfort on palpation in left upper chest wall), lungs clear Cardiovascular Exam: regular rate/rhythm, normal heart sounds Gastrointestinal/Abdomen Exam: soft, normal bowel sounds, No tenderness Back Exam: normal inspection, normal range of motion Extremity Exam: normal inspection, normal range of motion Neurologic Exam: alert, oriented x 3, No normal mood/affect Skin Exam: normal color SpO2 Interpretation: normal SpO2: 99 O2 Delivery: Room Air - Course EKG Interpreted by Me: RATE (61), Sinus Rhythm, NORMAL AXIS, NORMAL INTERVALS, NORMAL QRS Ordered Tests: Active Orders 24 hr Category Date Time Status Sales Clerk STAT Care 04/27/22 21:21 Active EKG-ER Only STAT Care 04/27/22 21:20 Active IV Insertion STAT Care 04/27/22 21:20 Active Orthostatic Vital Signs STAT Care 04/27/22 21:21 Active CHEST 1 VIEW (PORTABLE) Stat Exams 04/27/22 21:20 Taken CBC W DIFF Stat Lab 04/27/22 21:45 Completed CK-Creatinine Phosphokinase Stat Lab 04/27/22 21:45 Completed CMP Stat Lab 04/27/22 21:45 Completed D-DIMER QUANTITATIVE Stat Lab 04/27/22 21:45 Completed NT PRO BNP Stat Lab 04/27/22 21:45 Completed TROPONIN Q4H Lab 04/27/22 21:45 Completed TROPONIN Q4H Lab 04/28/22 01:30 Ordered TROPONIN Q4H Lab 04/28/22 05:30 Ordered Bardy 3-7 Day Holter ONCE RT 04/27/22 23:52 Completed Medication Summary Discontinued Medications Generic Name Dose Route Start Last Admin Trade Name Freq PRN Reason Stop Dose Admin Aspirin 324 mg 04/27/22 21:20 04/27/22 21:57 Aspirin 81 Mg Tab.Chew PO 04/27/22 21:21 324 mg STAT ONE Administration Aspirin Confirm 04/27/22 21:56 Aspirin 81 Mg Tab.Chew Administered 04/27/22 21:57 Dose 324 mg .ROUTE .STK-MED ONE Sodium Chloride 1,000 mls @ 999 mls/hr 04/27/22 21:20 04/27/22 21:57 Sodium Chloride 0.9% 1000 Ml IV 04/27/22 22:20 999 mls/hr .Q1H1M STA Administration Sodium Chloride Confirm 04/27/22 21:56 Sodium Chloride 0.9% 1000 Ml Administered 04/27/22 21:57 Dose 1,000 mls @ ud .ROUTE .STK-MED ONE Potassium Chloride 40 meq 04/27/22 22:45 04/27/22 22:53 Potassium Chloride Tab 10 Meq Tab PO 04/27/22 22:46 40 meq STAT ONE Administration Potassium Chloride Confirm 04/27/22 22:53 Potassium Chloride Tab 10 Meq Tab Administered 04/27/22 22:54 Dose 40 meq PO .STK-MED ONE Lab/Rad Data: Laboratory Result Diagrams 04/27/22 21:45 04/27/22 21:45 Laboratory Results 04/27/22 04/27/22 04/27/22 Range/Units 21:45 21:45 21:45 WBC (4.0-10.5) x10^3/uL RBC (4.1-5.4) x10^6/uL Hgb (12.0-16.0) g/dL Hct (35-47) % MCV (78-100) fL MCH (26-32) pg MCHC (32-36) g/dL RDW (11.5-14.0) % Plt Count (150-450) x10^3/uL MPV (7.5-11.0) fL Gran % (36.0-66.0) % Immature Gran % (Auto) (0.00-0.4) % Nucleat RBC Rel Count (0.00-0.1) % Eos # (Auto) (0-0.5) x10^3/uL Immature Gran # (Auto) (0.00-0.03) x10^3u/L Absolute Lymphs (auto) (1.0-4.6) x10^3/uL Absolute Monos (auto) (0.0-1.3) x10^3/uL Absolute Nucleated RBC (0.00-0.01) x10^3u/L Lymphocytes % (24.0-44.0) % Monocytes % (0.0-12.0) % Eosinophils % (0.00-5.0) % Basophils % (0.0-0.4) % Absolute Granulocytes (1.4-6.9) x10^3/uL Basophils # (0-0.4) x10^3/uL D-Dimer 0.20 (0.0-0.50) mg/L Sodium 137 (137-145) mmol/L Potassium 3.2 L (3.5-5.1) mmol/L Chloride 111 H (98-107) mmol/L Carbon Dioxide 22 (22-30) mmol/L Anion Gap 6.9 (5-15) MEQ/L BUN 16 (7-17) mg/dL Creatinine 0.61 (0.52-1.04) mg/dL Estimated GFR > 60.0 ML/MIN Glucose 98 (74-106) mg/dL Calcium 7.3 L (8.4-10.2) mg/dL Total Bilirubin 0.50 (0.2-1.3) mg/dL AST 45 H (14-36) U/L ALT 92 H (0-35) U/L Alkaline Phosphatase 62 (38-126) U/L Creatine Kinase 26 L (30-135) U/L Troponin I < 0.012 (0.000-0.034) ng/mL NT-Pro-B Natriuret Pep 32.2 (0-900) pg/mL Serum Total Protein 5.6 L (6.3-8.2) g/dL Albumin 3.3 L (3.5-5.0) g/dL 04/27/22 Range/Units 21:45 WBC 7.8 (4.0-10.5) x10^3/uL RBC 4.30 (4.1-5.4) x10^6/uL Hgb 12.0 (12.0-16.0) g/dL Hct 37.2 (35-47) % MCV 86.5 (78-100) fL MCH 27.9 (26-32) pg MCHC 32.3 (32-36) g/dL RDW 13.4 (11.5-14.0) % Plt Count 226 (150-450) x10^3/uL MPV 10.4 (7.5-11.0) fL Gran % 55.2 (36.0-66.0) % Immature Gran % (Auto) 0.1 (0.00-0.4) % Nucleat RBC Rel Count 0.0 (0.00-0.1) % Eos # (Auto) 0.17 (0-0.5) x10^3/uL Immature Gran # (Auto) 0.01 (0.00-0.03) x10^3u/L Absolute Lymphs (auto) 2.54 (1.0-4.6) x10^3/uL Absolute Monos (auto) 0.74 (0.0-1.3) x10^3/uL Absolute Nucleated RBC 0.00 (0.00-0.01) x10^3u/L Lymphocytes % 32.5 (24.0-44.0) % Monocytes % 9.5 (0.0-12.0) % Eosinophils % 2.2 (0.00-5.0) % Basophils % 0.5 (0.0-0.4) % Absolute Granulocytes 4.31 (1.4-6.9) x10^3/uL Basophils # 0.04 (0-0.4) x10^3/uL D-Dimer (0.0-0.50) mg/L Sodium (137-145) mmol/L Potassium (3.5-5.1) mmol/L Chloride (98-107) mmol/L Carbon Dioxide (22-30) mmol/L Anion Gap (5-15) MEQ/L BUN (7-17) mg/dL Creatinine (0.52-1.04) mg/dL Estimated GFR ML/MIN Glucose (74-106) mg/dL Calcium (8.4-10.2) mg/dL Total Bilirubin (0.2-1.3) mg/dL AST (14-36) U/L ALT (0-35) U/L Alkaline Phosphatase (38-126) U/L Creatine Kinase (30-135) U/L Troponin I (0.000-0.034) ng/mL NT-Pro-B Natriuret Pep (0-900) pg/mL Serum Total Protein (6.3-8.2) g/dL Albumin (3.5-5.0) g/dL - Progress Progress: improved Progress Note: 04/27/22 23:21 52 years old is evaluated for intermittent chest discomfort with some radiation to left arm and intermittent dizziness since yesterday. Patient has no shortness of breath. She has a tingling sensation in the left arm radiating from the chest NSAI has some tenderness on left upper anterior chest. EKG showed sinus rhythm with no ST elevation and negative troponins. Chest x-ray reviewed by me negative for any acute cardiopulmonary findings, official report is pending. Patient has mildly low potassium of 3.2, given oral replacement. Has negative orthostatics. Negative D-dimers, given fluids, on reevaluation patient is feeling better. I believe her symptoms could be secondary to intermittent arrhythmia with ambulation causing dizziness. I do not think patient needs second troponin as her symptoms been going on for more than 24 hours and not very typical of CAD. I have discussed with patient about Holter monitoring and will do it first 7 days event monitor. Recommended outpatient primary care and cardiology follow-up. Discussed signs symptoms of worsening needing return to ER which she seems understanding. 04/27/22 23:24 Counseled pt/family regarding: lab results, diagnosis, need for follow-up, rad results - Departure Departure Disposition: Home Clinical Impression: Intermittent lightheadedness, Atypical chest pain Condition: Stable Critical Care Time: No Referrals: PHILIP BAUTISTA [Primary Care Provider] - Follow up/PCP as directed (1-2 days for reevaluation) NAT HUANG [CONSULTING PHYSICIAN] - Follow up/PCP as directed (Call for appointment for reevaluation) Instructions: Chest Pain, Arrhythmias (DC) Additional Instructions: Keep yourself well-hydrated. Follow-up with primary care and cardiology for reevaluation. Return to ER for worsening of lightheadedness, chest pain or if having difficulty breathing etc.
[2022-04-27 22:20] LABS: ALBUMIN 3.3 g/dL (3.5-5.0); BLOOD UREA NITROGEN 16 mg/dL (7-17); CHLORIDE 111 mmol/L (98-107); Calcium 7.3 mg/dL (8.4-10.2); Carbon Dioxide 22 mmol/L (22-30); Creatinine 1 0.61 mg/dL (0.52-1.04); EST GLOMERULAR FILTRATION RATE > 60.0 ML/MIN; Glucose 98 mg/dL (74-106); Potassium 3.2 mmol/L (3.5-5.1); SODIUM 137 mmol/L (137-145); Total Protein 5.6 g/dL (6.3-8.2)
[2022-04-27 22:21] LABS: ALKALINE PHOSPHATASE 62 U/L (38-126); ANION GAP 6.9 MEQ/L (5-15); CK-Creatinine Phosphokinase 26 U/L (30-135); NT PRO BNP 32.2 pg/mL (0-900); SGOT/AST 45 U/L (14-36); SGPT/ALT 92 U/L (0-35)
[2022-04-27] MEDS ORDERED: Klor Con PO ONE ×2 (22:45→22:53)
[2022-04-27 23:25] VITALS: O2SAT 99
[2022-04-28 00:03] VITALS: BP 127/83; PULSE 68
--- NOTE | 2022-04-28 08:41 | XRAY ---
Indication: Chest pain. Comparison: July 06, 2017 Portable apical lordotic demonstrates stable chronic blunting right costophrenic angle. Remaining heart and lungs unremarkable with new left Port-A-Cath. Bony thorax intact. No acute findings.
== END 2022-04-28 | disposition home or self-care (01) ==
LOC: ED 20:45
DX: R07.89 Other chest pain (principal); R42 Dizziness and giddiness; Z79.899 Other long term (current) drug therapy
CPT/HCPCS: 36000; 36415; 71045; 80053; 82550; 83880; 84484; 85025; 85379; 93005; 93041; 93225; 96360; 99284; A9270-GY